=== PATIENT | female | born 1990 | race Two or more races ===

== ENCOUNTER 2017-03-07 15:01 | Emergency (ER) | payer SELFPAY | END 2017-03-07 15:58 | disposition home or self-care (01) | LOC: ER 15:01 | DX: N93.8 Other specified abnormal uterine and vaginal bleeding (principal); J45.909 Unspecified asthma, uncomplicated | CPT/HCPCS: 99282 ==

== ENCOUNTER 2017-04-17 23:44 | Emergency (ER) | payer SELFPAY | END 2017-04-18 00:58 | disposition left against medical advice (07) | LOC: ER 23:44 | DX: R51 Headache (principal); M79.1 Myalgia; Z53.21 Procedure and treatment not carried out due to patient leaving prior to being seen by health care provider ==

== ENCOUNTER 2017-06-20 15:51 | Emergency (ER) | payer SELFPAY ==
[2017-06-20 17:37] LABS: URINE HCG POC HCG NEGATIVE (Negative)
[2017-06-20] MEDS ORDERED: 0.9 % SODIUM CHLORIDE 10 ML DISP.SYRIN. IV (17:45)
[2017-06-20 17:53] LABS: BILIRUBIN,URINE NEGATIVE (NEG); CLARITY,URINE CLOUDY; COLOR,URINE YELLOW; GLUCOSE,URINE NEGATIVE (NEG); NITRITE,URINE NEGATIVE (NEG); PH,URINE 8.5; PROTEIN,URINE 100 mg/dL (NEG-TRACE)
[2017-06-20] MEDS: IOHEXOL 300 MG/ML 100ML VIAL. IV (18:00)
[2017-06-20] MEDS ORDERED: CONTRAST GIVEN MC (18:00)
[2017-06-20 18:07] LABS: BACTERIA,URINE MODERATE /HPF (0-FEW); SQUAMOUS EPITHELIAL CELL,UR FEW /LPF; WBC,URINE >40 /HPF (0-4)
[2017-06-20 18:14] LABS: ADD MAN DIFF? NO
[2017-06-20 18:17] LABS: BASO % 0 % (0-3); EOS % 0 % (0-3); HEMOGLOBIN 11.3 g/dL (12.0-15.5); LYMPH # 1.3 x10^3/uL (1.0-4.8); LYMPH % 11 % (24-48); MEAN CORPUSCULAR HEMOGLOBIN 29 pg (25-35); MEAN CORPUSCULAR HGB CONC 34 g/dL (31-37); MEAN CORPUSCULAR VOLUME 84 fL (79-100); MONO # 0.8 x10^3/uL (0.0-1.1); MONO % 7 % (0-9); NEUT # 9.9 x10^3uL (1.8-7.7); NEUT % 82 % (31-73); PLATELET COUNT 159 x10^3/uL (140-400); RED BLOOD COUNT 3.92 x10^6/uL (3.50-5.40); RED CELL DISTRIBUTION WIDTH 13.5 % (11.5-14.5); WHITE BLOOD COUNT 12.1 x10^3/uL (4.0-11.0)
[2017-06-20 18:25] LABS: ANION GAP 10 (6-14); BLOOD UREA NITROGEN 18 mg/dL (7-20); CALCIUM 8.1 mg/dL (8.5-10.1); CARBON DIOXIDE 24 mmol/L (21-32); CHLORIDE 104 mmol/L (98-107); CREATININE 0.9 mg/dL (0.6-1.0); GFR 76.3; GLUCOSE 100 mg/dL (70-99); POTASSIUM 3.2 mmol/L (3.5-5.1); SODIUM 138 mmol/L (136-145)
[2017-06-20 18:31] LABS: ALBUMIN 3.2 g/dL (3.4-5.0); ALK PHOS 58 U/L (46-116); ALT (SGPT) 10 U/L (14-59); AST (SGOT) 12 U/L (15-37); DIRECT BILIRUBIN 0.1 mg/dL (0.0-0.2); LIPASE 146 U/L (73-393); TOTAL BILIRUBIN 0.6 mg/dL (0.2-1.0); TOTAL PROTEIN 6.9 g/dL (6.4-8.2)
[2017-06-20] MEDS: IV NORMAL SALINE 1000ML BAG 1,000 ML IV (19:04)
[2017-06-20] MEDS: ONDANSETRON PF 4 MG/2 ML VIAL. IV (19:05)
[2017-06-20] MEDS: KETOROLAC 30 MG/ML INJ. IV (19:06)
[2017-06-20] MEDS: MORPHINE SULFATE 4 MG/ML DISP.SYRIN. IV/SQ (19:06)
[2017-06-20] MEDS: CIPROFLOXACIN HCL 250 MG TABLET. PO (19:54)
== END 2017-06-20 19:59 | disposition home or self-care (01) ==
LOC: ER 15:51
DX: N12 Tubulo-interstitial nephritis, not specified as acute or chronic (principal); R00.0 Tachycardia, unspecified; K59.00 Constipation, unspecified; J45.909 Unspecified asthma, uncomplicated
CPT/HCPCS: 36415; 74177; 80048; 80076; 81001; 81025; 83690; 85025; 87086; 96361; 96374; 96375; 99285-25; J1885; J2270; J2405; J7030; Q9967

== ENCOUNTER 2017-08-09 15:14 | Emergency (ER) | payer SELFPAY ==
[2017-08-09 15:30] LABS: URINE HCG POC HCG NEGATIVE (Negative)
[2017-08-09 15:42] LABS: BILIRUBIN,URINE NEGATIVE (NEG); CLARITY,URINE CLEAR; COLOR,URINE YELLOW; GLUCOSE,URINE NEGATIVE (NEG); NITRITE,URINE NEGATIVE (NEG); PH,URINE 7.5; PROTEIN,URINE NEGATIVE (NEG-TRACE)
[2017-08-09 15:47] LABS: BACTERIA,URINE FEW /HPF (0-FEW); SQUAMOUS EPITHELIAL CELL,UR MOD /LPF; WBC,URINE OCC /HPF (0-4)
== END 2017-08-09 16:50 | disposition home or self-care (01) ==
LOC: ER 15:14
DX: R10.9 Unspecified abdominal pain (principal); R11.0 Nausea; J45.909 Unspecified asthma, uncomplicated
CPT/HCPCS: 74176; 81001; 81025; 99285-25

== ENCOUNTER 2018-02-20 15:21 | Emergency (ER) | payer SELFPAY ==
[~2018-02-20] VITALS: Ht 152.4 cm; Wt 56.7 kg
[~2018-02-20 15:21] MED LIST: CIPR500T94 PO; CYCL10TA2 PO; HYDR-2761 PO; NAPR-514 PO; NAPR-683 PO; ONDA4TAB10 PO
--- NOTE | 2018-02-20 15:37 | PHYS DOC ---
Past Medical History Past Medical History: Asthma, UTI Past Surgical History: Alcohol Use: None Drug Use: None Adult General Chief Complaint Chief Complaint: DYSPNEA/RESPIRATOY DISTRESS [facility] HPI Patient is a 27 year old female with history of UTIs, asthma, who presents today complaining of dysuria that began yesterday. Patient is also complaining of a generalized 7 out of 10 lower abdominal pain intermittently since yesterday. Describes the pain as sharp. Denies any nausea vomiting, denies any fever. Provisioning Analyst line was used for [place] Review of Systems Review of Systems Constitutional: Denies fever or chills [] Eyes: Denies change in visual acuity, redness, or eye pain [] HENT: Denies nasal congestion or sore throat [] Respiratory: Denies cough or shortness of breath [] Cardiovascular: No additional information not addressed in HPI [] GI: Reports lower abdominal pain, denies nausea, vomiting, bloody stools or diarrhea [] : Reports dysuria, denies hematuria [] Musculoskeletal: Denies back pain or joint pain [] Integument: Denies rash or skin lesions [] Neurologic: Denies headache, focal weakness or sensory changes [] All other systems were reviewed and found to be within normal limits, except as documented in this note. Allergies Allergies Allergies Coded Allergies Type Severity Reaction Last Updated Verified No Known Drug Allergies 07/13/15 No Physical Exam Physical Exam Constitutional: Well developed, well nourished, no acute distress, non-toxic appearance. [] HENT: Normocephalic, atraumatic, bilateral external ears normal, oropharynx moist, no oral exudates, nose normal. [] Eyes: PERRLA, EOMI, conjunctiva normal, no discharge. [] Neck: Normal range of motion, no tenderness, supple, no stridor. [] Cardiovascular:Heart rate regular rhythm, no murmur [] Lungs & Thorax: Bilateral breath sounds clear to auscultation [] Abdomen: Bowel sounds normal, soft, no tenderness, no masses, no pulsatile masses. [] Skin: Warm, dry, no erythema, no rash. [] Back: No tenderness, no CVA tenderness. [] Extremities: No tenderness, no cyanosis, no clubbing, ROM intact, no edema. [] Neurologic: Alert and oriented X 3, normal motor function, normal sensory function, no focal deficits noted. [] Psychologic: Affect normal, judgement normal, mood normal. [] Current Patient Data Vital Signs Vital Signs Date Time Temp Pulse Resp B/P (MAP) Pulse Ox O2 Delivery O2 Flow Rate FiO2 02/20/18 15:51 98.5 76 16 123/90 (101) 100 Room Air 98.5 Lab Values Laboratory Tests Test 02/20/18 15:30 02/20/18 15:41 Urine Collection Type Unknown Urine Color Yellow Urine Clarity Clear Urine pH 7.5 Urine Specific [place] 1.020 Urine Protein Negative mg/dL (NEG-TRACE) Urine Glucose (UA) Negative mg/dL (NEG) Urine Ketones (Stick) Negative mg/dL (NEG) Urine Blood Trace (NEG) Urine Nitrite Negative (NEG) Urine Bilirubin Negative (NEG) Urine Urobilinogen Dipstick 1.0 mg/dL (0.2 mg/dL) Urine Leukocyte Esterase Moderate (NEG) Urine RBC 1-2 /HPF (0-2) Urine WBC 20-40 /HPF (0-4) Urine Squamous Epithelial Cells Mod /LPF Urine Bacteria Many /HPF (0-FEW) Urine Mucus Slight /LPF POC Urine HCG, Qualitative Hcg negative (Negative) EKG EKG [] Radiology/Procedures Radiology/Procedures [] Course & Med Decision Making Course & Med Decision Making Pertinent Labs and Imaging studies reviewed. (See chart for details) This is a 27-year-old female patient presenting to the ED today with complaints of dysuria and lower abdominal pain that began yesterday. History of UTIs. Urine positive for UTI, discharged on MicroBid. Also discharged on Pyridium and ibuprofen. Instructed to push fluids and follow-up with her own doctor in 1-2 weeks. Staff Physician Addendum: I was working in the ER during the course of this patient's visit. I was available for consultation as needed, but I was not directly involved in the care of this patient. Dragon Disclaimer Dragon Disclaimer This electronic medical record was generated, in whole or in part, using a voice recognition dictation system. Departure Departure Impression: Primary Impression: Urinary tract infection Disposition: HOME, SELF-CARE Condition: STABLE Referrals: NO PCP (PCP) Follow-up with your doctor in 1-2 weeks Patient Instructions: Urinary Tract Infection Additional Instructions: You were evaluated in the emergency room on noted to have urinary tract infection. Please complete your antibiotics. Push fluids. Take the rest of the prescribed medications as ordered. Scripts Ibuprofen (IBUPROFEN) 600 Mg Tablet 600 MG PO PRN Q6HRS PRN for INFLAMMATION, #20 TAB Prov: NICOLE MURPHY APRN 02/20/18 Phenazopyridine Hcl (PYRIDIUM) 100 Mg Tablet 100 MG PO TID, #9 TAB Prov: NICOLE MURPHY APRN 02/20/18 Nitrofurantoin Macrocrystal (MACRODANTIN) 100 Mg Capsule 1 CAP PO BID, #14 CAP Prov: NICOLE MURPHY APRN 02/20/18 Problem Qualifiers Primary Impression: Urinary tract infection Urinary tract infection type: site unspecified Hematuria presence: without hematuria Qualified Codes: N39.0 - Urinary tract infection, site not specified NICOLE MURPHY APRN Feb 20, 2018 15:37 JOHNSON BAUMAN MD Feb 20, 2018 16:50
[2018-02-20 15:47] LABS: BILIRUBIN,URINE NEGATIVE (NEG); CLARITY,URINE CLEAR; COLOR,URINE YELLOW; NITRITE,URINE NEGATIVE (NEG); PH,URINE 7.5; PROTEIN,URINE NEGATIVE (NEG-TRACE)
[2018-02-20 15:51] VITALS: BP 123/90
[2018-02-20 16:05] LABS: BACTERIA,URINE MANY /HPF (0-FEW); SQUAMOUS EPITHELIAL CELL,UR MOD /LPF; WBC,URINE 20-40 /HPF (0-4)
[2018-02-20] MEDS ORDERED: PHEN100T82 PO (16:14)
[2018-02-20] MEDS ORDERED: NITR100C63 PO (16:14)
[2018-02-20] MEDS ORDERED: IBUP-1007 PO (16:14)
== END 2018-02-20 16:21 | disposition home or self-care (01) ==
LOC: ER 15:21
DX: N39.0 Urinary tract infection, site not specified (principal); J45.909 Unspecified asthma, uncomplicated
CPT/HCPCS: 81001; 81025; 87086; 87186; 99283

== ENCOUNTER 2018-11-05 10:19 | Emergency (ER) | payer SELFPAY ==
[~2018-11-05] VITALS: Ht 167.6 cm; Wt 68.9 kg
[~2018-11-05 10:19] MED LIST changes: +IBUP-1007 PO; +NITR100C63 PO; +PHEN100T82 PO
[2018-11-05 11:37] LABS: BILIRUBIN,URINE NEGATIVE (NEG); CLARITY,URINE CLEAR; COLOR,URINE YELLOW; NITRITE,URINE NEGATIVE (NEG); PROTEIN,URINE NEGATIVE (NEG-TRACE); UROBILINOGEN,URINE 0.2 mg/dL (0.2 mg/dL)
[2018-11-05 11:42] LABS: BASO % 1 % (0-3); EOS % 0 % (0-3); HEMATOCRIT 39.4 % (36.0-47.0); HEMOGLOBIN 13.3 g/dL (12.0-15.5); LYMPH # 1.8 x10^3/uL (1.0-4.8); LYMPH % 23 % (24-48); MEAN CORPUSCULAR HEMOGLOBIN 29 pg (25-35); MEAN CORPUSCULAR HGB CONC 34 g/dL (31-37); MEAN CORPUSCULAR VOLUME 86 fL (79-100); MONO # 0.4 x10^3/uL (0.0-1.1); MONO % 5 % (0-9); NEUT # 5.5 x10^3/uL (1.8-7.7); NEUT % 71 % (31-73); PLATELET COUNT 171 x10^3/uL (140-400); RED CELL DISTRIBUTION WIDTH 13.2 % (11.5-14.5); WHITE BLOOD COUNT 7.7 x10^3/uL (4.0-11.0)
[2018-11-05 11:44] LABS: BACTERIA,URINE FEW /HPF (0-FEW); HYALINE CASTS, URINE OCCASIONAL /HPF; RBC,URINE 0 /HPF (0-2); SQUAMOUS EPITHELIAL CELL,UR OCC /LPF
[2018-11-05 11:45] LABS: CALCIUM 8.7 mg/dL (8.5-10.1); CREATININE 0.9 mg/dL (0.6-1.0); GFR 75.7; POTASSIUM 3.9 mmol/L (3.5-5.1)
[2018-11-05 11:51] LABS: ALBUMIN 3.9 g/dL (3.4-5.0); TOTAL BILIRUBIN 0.3 mg/dL (0.2-1.0); TOTAL PROTEIN 7.8 g/dL (6.4-8.2)
--- NOTE | 2018-11-05 11:55 | RAD ---
PORTABLE CHEST 1V History: History of trauma. Left rib pain. Comparison: None. Findings: No consolidation or pleural effusion. Normal heart size. No pneumothorax. Angulation of the left lateral 8 rib. Impression: 1. No acute cardiopulmonary process. 2. Age-indeterminate left lateral eighth rib fracture. Correlate for point tenderness. Electronically signed by: Vishal Avila DO (11/05/2018 11:53 AM) [id number]
[2018-11-05] MEDS ORDERED: IOHEXOL 300 MG/ML 100ML VIAL. IJ ONE (12:15)
[2018-11-05] MEDS ORDERED: ACETAMINOPHEN 500 MG TABLET PO ONE (12:15)
--- NOTE | 2018-11-05 12:51 | RAD ---
CT of the abdomen and pelvis with contrast 11/05/2018 INDICATION: Upper abdominal pain. Recent trauma COMPARISON STUDY: None available TECHNIQUE: Multidetector CT imaging of the abdomen and pelvis is obtained after the administration of intravenous contrast. FINDINGS: Visualized lung bases demonstrate no acute abnormality. Liver, gallbladder, adrenal glands, spleen, pancreas, and kidneys demonstrate no acute abnormality. There is no evidence of bowel obstruction. No evidence of acute inflammatory change involving the visualized bowel is identified. The appendix is well-visualized and normal in appearance. The bladder is unremarkable in appearance. Limited evaluation the uterus and adnexa demonstrates no gross abnormality. There are healing fractures of the left eighth and ninth ribs with some associated callus formation.. The appearance suggests a subacute or chronic etiology. Correlate with focal tenderness. Impression: 1.Subacute to chronic fractures of the lateral left eighth and ninth ribs. Correlate with point tenderness 2. No other acute intra-abdominal abnormality is seen CT DOSING PQRS STATEMENT: One or more of the following individualized dose reduction techniques were utilized for this examination: 1. Automated exposure control 2. Adjustment of the mA and/or kV according to patient size 3. Use of iterative reconstruction technique Electronically signed by: Maurizio Jones MD (11/05/2018 12:48 PM) [id number]
[2018-11-05] MEDS ORDERED: HYDR-3164 PO (13:10)
[2018-11-05 13:55] VITALS: BP 109/63
--- NOTE | 2018-11-05 14:48 | PHYS DOC ---
Past Medical History Past Medical History: No Pertinent History, Asthma, UTI Past Surgical History: Alcohol Use: Occasionally Drug Use: None Adult General Chief Complaint Chief Complaint: ABDOMINAL PAIN HPI HPI Patient is a 28 year old Female history is obtained with a interpreter. Patient is complaining of left rib pain and lower rib area she fell on a ladder sort of on top of a ladder 2 weeks ago the pain is slowly going away she also has left upper quadrant and lower abdominal pain. She also noticed some bumps in her right lateral neck and her right axilla that she was worried about those have been going on the ones in the axilla for months the ones on the right neck for a couple of days associated with rhinorrhea and a scratchy throat no fever that she knows of denies domestic violence asked this with an video production intern in private pain is sharp moderate slowly actually slowly decreasing with time Review of Systems Review of Systems Constitutional: Denies fever or chills [] Eyes: Denies change in visual acuity, redness, or eye pain [] HENT: Denies nasal congestion or sore throat [] Respiratory: Denies cough or shortness of breath [] Cardiovascular: No additional information not addressed in HPI [] GI: Denies abdominal pain, nausea, vomiting, bloody stools or diarrhea [] : Denies dysuria or hematuria [] Musculoskeletal: Denies back pain or joint pain [] Integument: Denies rash or skin lesions [] Neurologic: Denies headache, focal weakness or sensory changes [] Endocrine: Denies polyuria or polydipsia [] All other systems were reviewed and found to be within normal limits, except as documented in this note. Current Medications Current Medications Current Medications Medications (Trade) Dose Ordered Sig/Patito Start Time Stop Time Status Last Admin Dose Admin Acetaminophen (Tylenol) 1,000 mg 1X ONCE 11/05/18 12:15 11/05/18 12:16 DC 11/05/18 12:04 1,000 MG Iohexol (Omnipaque 300 Mg/ml) 75 ml 1X ONCE 11/05/18 12:15 11/05/18 12:16 DC 11/05/18 11:55 75 ML Allergies Allergies Allergies Coded Allergies Type Severity Reaction Last Updated Verified No Known Drug Allergies 07/13/15 No Physical Exam Physical Exam Constitutional: Well developed, well nourished, no acute distress, non-toxic appearance. [] HENT: Normocephalic, atraumatic, bilateral external ears normal, oropharynx moist, no oral exudates, nose normal. [] Eyes: PERRLA, EOMI, conjunctiva normal, no discharge. [] Neck: Normal range of motion, no tenderness, supple, no stridor. [] Cardiovascular:Heart rate regular rhythm, no murmur [] Lungs & Thorax: Bilateral breath sounds clear to auscultation [] chest wall ttp lower left chest no crepitus Abdomen: Bowel sounds normal, soft, mild luq tenderness, no masses, no pulsatile masses. [] Skin: Patient does have evidence of mass lymphadenopathy in the right posterior cervical chain 0.5 cm nontender mobile. Oral pharynx mild erythema no exudate no swelling tolerating secretions without difficulty. There is also a small nodule in the right axilla could be HIDRADENTIIS SUPPURITIVA V. LESS LIKELY LYMPHADENOPATHY WELL. I recommended follow-up with primary care doctor should the NODULESnot improve with warm compresses and observation Back: No tenderness, no CVA tenderness. [] Extremities: No tenderness, no cyanosis, no clubbing, ROM intact, no edema. [] Neurologic: Alert and oriented X 3, normal motor function, normal sensory function, no focal deficits noted. [] Psychologic: Affect normal, judgement normal, mood normal. [] Current Patient Data Vital Signs Vital Signs Date Time Temp Pulse Resp B/P (MAP) Pulse Ox O2 Delivery O2 Flow Rate FiO2 11/05/18 13:55 68 16 109/63 (78) 100 Room Air 11/05/18 11:20 98.0 98.0 Lab Values Laboratory Tests Test 11/05/18 11:02 11/05/18 11:05 11/05/18 11:15 Urine Collection Type Unknown Urine Color Yellow Urine Clarity Clear Urine pH 6.0 Urine Specific [place] 1.015 Urine Protein Negative mg/dL (NEG-TRACE) Urine Glucose (UA) Negative mg/dL (NEG) Urine Ketones (Stick) Negative mg/dL (NEG) Urine Blood Trace (NEG) Urine Nitrite Negative (NEG) Urine Bilirubin Negative (NEG) Urine Urobilinogen Dipstick 0.2 mg/dL (0.2 mg/dL) Urine Leukocyte Esterase Negative (NEG) Urine RBC 0 /HPF (0-2) Urine WBC 1-4 /HPF (0-4) Urine Squamous Epithelial Cells Occ /LPF Urine Bacteria Few /HPF (0-FEW) Urine Hyaline Casts Occasional /HPF Urine Mucus Slight /LPF POC Urine HCG, Qualitative Hcg negative (Negative) White Blood Count 7.7 x10^3/uL (4.0-11.0) Red Blood Count 4.60 x10^6/uL (3.50-5.40) Hemoglobin 13.3 g/dL (12.0-15.5) Hematocrit 39.4 % (36.0-47.0) Mean Corpuscular Volume 86 fL (79-100) Mean Corpuscular Hemoglobin 29 pg (25-35) Mean Corpuscular Hemoglobin Concent 34 g/dL (31-37) Red Cell Distribution Width 13.2 % (11.5-14.5) Platelet Count 171 x10^3/uL (140-400) Neutrophils (%) (Auto) 71 % (31-73) Lymphocytes (%) (Auto) 23 % (24-48) L Monocytes (%) (Auto) 5 % (0-9) Eosinophils (%) (Auto) 0 % (0-3) Basophils (%) (Auto) 1 % (0-3) Neutrophils # (Auto) 5.5 x10^3/uL (1.8-7.7) Lymphocytes # (Auto) 1.8 x10^3/uL (1.0-4.8) Monocytes # (Auto) 0.4 x10^3/uL (0.0-1.1) Eosinophils # (Auto) 0.0 x10^3/uL (0.0-0.7) Basophils # (Auto) 0.0 x10^3/uL (0.0-0.2) Sodium Level 142 mmol/L (136-145) Potassium Level 3.9 mmol/L (3.5-5.1) Chloride Level 107 mmol/L (98-107) Carbon Dioxide Level 26 mmol/L (21-32) Anion Gap 9 (6-14) Blood Urea Nitrogen 10 mg/dL (7-20) Creatinine 0.9 mg/dL (0.6-1.0) Estimated GFR (Cockcroft-Gault) 75.7 BUN/Creatinine Ratio 11 (6-20) Glucose Level 84 mg/dL (70-99) Calcium Level 8.7 mg/dL (8.5-10.1) Total Bilirubin 0.3 mg/dL (0.2-1.0) Aspartate Amino Transferase (AST) 16 U/L (15-37) Alanine Aminotransferase (ALT) 14 U/L (14-59) Alkaline Phosphatase 77 U/L (46-116) Total Protein 7.8 g/dL (6.4-8.2) Albumin 3.9 g/dL (3.4-5.0) Albumin/Globulin Ratio 1.0 (1.0-1.7) Lipase 173 U/L (73-393) Laboratory Tests 11/05/18 11:15 Laboratory Tests 11/05/18 11:15 EKG EKG [] Radiology/Procedures Radiology/Procedures Impression: 1. No acute cardiopulmonary process. 2. Age-indeterminate left lateral eighth rib fracture. Correlate for point tenderness. Electronically signed by: Vishal Dow DO (11/05/2018 11:53 AM) [id number] DICTATED and SIGNED BY: VISHAL DOW DO DATE: 11/05/18 1153 [] Impressions: after the administration of intravenous contrast. FINDINGS: Visualized lung bases demonstrate no acute abnormality. Liver, gallbladder, adrenal glands, spleen, pancreas, and kidneys demonstrate no acute abnormality. There is no evidence of bowel obstruction. No evidence of acute inflammatory change involving the visualized bowel is identified. The appendix is well-visualized and normal in appearance. The bladder is unremarkable in appearance. Limited evaluation the uterus and adnexa demonstrates no gross abnormality. There are healing fractures of the left eighth and ninth ribs with some associated callus formation.. The appearance suggests a subacute or chronic etiology. Correlate with focal tenderness. Impression: 1.Subacute to chronic fractures of the lateral left eighth and ninth ribs. Correlate with point tenderness 2. No other acute intra-abdominal abnormality is seen CT DOSING PQRS STATEMENT: One or more of the following individualized dose reduction techniques were utilized for this examination: 1. Automated exposure control 2. Adjustment of the mA and/or kV according to patient size 3. Use of iterative reconstruction technique Electronically signed by: Maurizio Jones MD (11/05/2018 12:48 PM) [facility] Course & Med Decision Making Course & Med Decision Making Pertinent Labs and Imaging studies reviewed. (See chart for details) []28 yo f multiple complaints trauma likely subacute fracture left rib area. fits with hx of trauma two weeks ago labs look good probable lymphadenopathy on exam recommended observation f/u with pmd should symptoms not improve as expected trial of norco prn, counseled not to drive Dragon Disclaimer Dragon Disclaimer This electronic medical record was generated, in whole or in part, using a voice recognition dictation system. Departure Departure Impression: Primary Impression: Rib fracture Disposition: HOME, SELF-CARE Condition: STABLE Patient Instructions: Rib Fracture, Dzcn-ko-Vovx Scripts Hydrocodone/Apap 5-325 (NORCO 5-325 TABLET) 1 Each Tablet 1-2 EACH PO PRN Q6HRS PRN for PAIN, #15 as needed for pain Prov: JOHNSON BAUMAN MD 11/05/18 JOHNSON BAUMAN MD Nov 05, 2018 14:48
== END 2018-11-05 13:55 | disposition home or self-care (01) ==
LOC: ER 10:19
DX: S22.32XA Fracture of one rib, left side, initial encounter for closed fracture (principal); R10.32 Left lower quadrant pain; R10.12 Left upper quadrant pain; J45.909 Unspecified asthma, uncomplicated; Z98.890 Other specified postprocedural states; W11.XXXA Fall on and from ladder, initial encounter; Y93.89 Activity, other specified; Y92.89 Other specified places as the place of occurrence of the external cause; Y99.8 Other external cause status
CPT/HCPCS: 36415; 71045; 74177; 80053; 81001; 81025; 83690; 85025; 99285; Q9967

== ENCOUNTER 2018-11-30 11:13 | Emergency (ER) | payer SELFPAY ==
[~2018-11-30] VITALS: Ht 154.9 cm; Wt 68.0 kg
[~2018-11-30 11:13] MED LIST changes: +HYDR-3164 PO
[2018-11-30] MEDS ORDERED: IV NORMAL SALINE 1000ML BAG 1,000 ML IV SCH (11:33)
--- NOTE | 2018-11-30 11:54 | PHYS DOC ---
Past Medical History Past Medical History: No Pertinent History, Asthma, UTI Past Surgical History: Alcohol Use: Occasionally Drug Use: None Adult General Chief Complaint Chief Complaint: ABDOMINAL PAIN HPI HPI Patient is a 28-year-old female who presents with complaint of lower abdominal pain that started a couple of days ago. She rates pain currently at a 3 out of 10. She denies any nausea but does admit to some vomiting. She denies any diarrhea. Patient states that it's been 3 months since her last menstrual cycle but does admit to a control shot about 2 months ago. She states that currently she is not on any control but is sexually active. She denies any fever or urinary discomfort.[] Review of Systems Review of Systems Constitutional: Denies fever or chills [] Respiratory: Denies cough or shortness of breath [] Cardiovascular: No additional information not addressed in HPI [] GI: Complains of lower abdominal pain with vomiting. Denies diarrhea [] : Denies dysuria or hematuria [] Musculoskeletal: Denies back pain or joint pain [] All other systems were reviewed and found to be within normal limits, except as documented in this note. Current Medications Current Medications Current Medications Medications (Trade) Dose Ordered Sig/Patito Start Time Stop Time Status Last Admin Dose Admin Info (CONTRAST GIVEN -- Rx MONITORING) 1 each PRN DAILY PRN 11/30/18 14:30 12/02/18 14:29 Iohexol (Omnipaque 300 Mg/ml) 75 ml 1X ONCE 11/30/18 14:30 11/30/18 14:31 DC Sodium Chloride 1,000 ml @ 1,000 mls/hr Q1H 11/30/18 11:33 11/30/18 12:32 DC 11/30/18 11:56 1,000 MLS/HR Allergies Allergies Allergies Coded Allergies Type Severity Reaction Last Updated Verified No Known Drug Allergies 07/13/15 No Physical Exam Physical Exam Constitutional: Well developed, well nourished, no acute distress, non-toxic woody earance. [] HENT: Normocephalic, atraumatic, bilateral external ears normal, oropharynx moist, no oral exudates, nose normal. [] Eyes: PERRLA, EOMI, conjunctiva normal, no discharge. [] Neck: Normal range of motion, no tenderness, supple, no stridor. [] Cardiovascular:Heart rate regular rhythm, no murmur [] Lungs & Thorax: Bilateral breath sounds clear to auscultation [] Abdomen: Bowel sounds normal, soft, with mild reported tenderness in the lower abdomen. [] Skin: Warm, dry, no erythema, no rash. [] Extremities: No tenderness, no cyanosis, no clubbing, ROM intact, no edema. [] Neurologic: Alert and oriented X 3, no focal deficits noted. [] Current Patient Data Vital Signs Vital Signs Date Time Temp Pulse Resp B/P (MAP) Pulse Ox O2 Delivery O2 Flow Rate FiO2 11/30/18 14:30 18 128/72 (90) Room Air 99.0 11/30/18 14:00 18 99 11/30/18 11:25 97.8 97.8 Lab Values Laboratory Tests Test 11/30/18 11:45 11/30/18 14:00 11/30/18 14:06 White Blood Count 7.8 x10^3/uL (4.0-11.0) Red Blood Count 4.46 x10^6/uL (3.50-5.40) Hemoglobin 13.1 g/dL (12.0-15.5) Hematocrit 37.8 % (36.0-47.0) Mean Corpuscular Volume 85 fL (79-100) Mean Corpuscular Hemoglobin 29 pg (25-35) Mean Corpuscular Hemoglobin Concent 35 g/dL (31-37) Red Cell Distribution Width 13.7 % (11.5-14.5) Platelet Count 195 x10^3/uL (140-400) Neutrophils (%) (Auto) 73 % (31-73) Lymphocytes (%) (Auto) 20 % (24-48) L Monocytes (%) (Auto) 6 % (0-9) Eosinophils (%) (Auto) 1 % (0-3) Basophils (%) (Auto) 1 % (0-3) Neutrophils # (Auto) 5.7 x10^3/uL (1.8-7.7) Lymphocytes # (Auto) 1.6 x10^3/uL (1.0-4.8) Monocytes # (Auto) 0.4 x10^3/uL (0.0-1.1) Eosinophils # (Auto) 0.1 x10^3/uL (0.0-0.7) Basophils # (Auto) 0.0 x10^3/uL (0.0-0.2) Maternal Serum HCG Beta Subunit 1 mIU/mL (0-5) Sodium Level 139 mmol/L (136-145) Potassium Level 4.0 mmol/L (3.5-5.1) Chloride Level 106 mmol/L (98-107) Carbon Dioxide Level 25 mmol/L (21-32) Anion Gap 8 (6-14) Blood Urea Nitrogen 11 mg/dL (7-20) Creatinine 0.8 mg/dL (0.6-1.0) Estimated GFR (Cockcroft-Gault) 86.7 BUN/Creatinine Ratio 14 (6-20) Glucose Level 99 mg/dL (70-99) Calcium Level 9.0 mg/dL (8.5-10.1) Total Bilirubin 0.7 mg/dL (0.2-1.0) Aspartate Amino Transferase (AST) 25 U/L (15-37) Alanine Aminotransferase (ALT) 16 U/L (14-59) Alkaline Phosphatase 70 U/L (46-116) Total Protein 7.9 g/dL (6.4-8.2) Albumin 3.7 g/dL (3.4-5.0) Albumin/Globulin Ratio 0.9 (1.0-1.7) L Lipase 211 U/L (73-393) Urine Collection Type Unknown Urine Color Yellow Urine Clarity Clear Urine pH 6.0 Urine Specific [place] 1.010 Urine Protein Negative mg/dL (NEG-TRACE) Urine Glucose (UA) Negative mg/dL (NEG) Urine Ketones (Stick) Negative mg/dL (NEG) Urine Blood Negative (NEG) Urine Nitrite Negative (NEG) Urine Bilirubin Negative (NEG) Urine Urobilinogen Dipstick 0.2 mg/dL (0.2 mg/dL) Urine Leukocyte Esterase Negative (NEG) Urine RBC 1-2 /HPF (0-2) Urine WBC Occ /HPF (0-4) Urine Squamous Epithelial Cells Mod /LPF Urine Bacteria Few /HPF (0-FEW) Urine Test Negative (NEG) POC Urine HCG, Qualitative Hcg negative (Negative) Laboratory Tests 11/30/18 11:45 Laboratory Tests 11/30/18 11:45 EKG EKG [] Radiology/Procedures Radiology/Procedures [] Impressions: PROCEDURE: CT ABD PELV W/ IV CONTRST ONLY CT study of the abdomen and pelvis with contrast Clinical indications: Abdominal pain. TECHNIQUE: After IV infusion of 75 cc Omnipaque 300, helical CT scanning of the abdomen and pelvis was performed. No GI contrast was administered. This may decrease the sensitivity to detect GI tract pathology. PQRS compliance Statement One or more of the following individualized dose reduction techniques were utilized for this study: 1. Automated exposure control 2. Adjustment of the mA and/or kV according to patient size 3. Use of iterative reconstruction technique FINDINGS: The liver and spleen and pancreas and gallbladder are normal. No extrahepatic biliary ductal dilatation is seen. No adrenal mass is evident. Both kidneys are normal without hydronephrosis or hydroureter. Urinary bladder wall is smooth. No uterine mass is evident. No dominant ovarian cyst or mass is evident. No focal aneurysmal dilatation of the abdominal aorta is seen. No enlarged abdominal or pelvic lymphadenopathy is evident. Appendix is normal. Terminal ileum is unremarkable. No obstructive bowel pattern is evident. No free air or free fluid or mesenteric edema is seen. No lung base consolidation is evident. No lytic process is seen. IMPRESSION: No acute abnormality of the abdomen or pelvis. Electronically signed by: Laci Cox MD (11/30/2018 3:44 PM) [facility] Course & Med Decision Making Course & Med Decision Making Pertinent Labs and Imaging studies reviewed. (See chart for details) [] Dragon Disclaimer Dragon Disclaimer This electronic medical record was generated, in whole or in part, using a voice recognition dictation system. Departure Departure Impression: Primary Impression: Lower abdominal pain Disposition: HOME, SELF-CARE Condition: STABLE Referrals: NO PCP (PCP) Patient Instructions: Abdominal Pain Scripts Ondansetron Hcl (ZOFRAN) 4 Mg Tablet 4 MG PO PRN TID PRN for NAUSEA, #15 nausea/vomiting Prov: LUZ VELAZQUEZ Jr. DO 11/30/18 Tramadol Hcl (TRAMADOL HCL) 50 Mg Tablet 50 MG PO Q6HRS PRN for PAIN, #10 TAB Prov: LUZ VELAZQUEZ Jr. DO 11/30/18 LUZ VELAZQUEZ Jr. DO Nov 30, 2018 11:54
[2018-11-30 12:06] LABS: CREATININE 0.8 mg/dL (0.6-1.0); GFR 86.7
[2018-11-30 12:07] LABS: BASO % 1 % (0-3); EOS # 0.1 x10^3/uL (0.0-0.7); EOS % 1 % (0-3); HEMATOCRIT 37.8 % (36.0-47.0); HEMOGLOBIN 13.1 g/dL (12.0-15.5); LYMPH # 1.6 x10^3/uL (1.0-4.8); LYMPH % 20 % (24-48); MEAN CORPUSCULAR HEMOGLOBIN 29 pg (25-35); MEAN CORPUSCULAR HGB CONC 35 g/dL (31-37); MEAN CORPUSCULAR VOLUME 85 fL (79-100); MONO # 0.4 x10^3/uL (0.0-1.1); MONO % 6 % (0-9); NEUT # 5.7 x10^3/uL (1.8-7.7); NEUT % 73 % (31-73); PLATELET COUNT 195 x10^3/uL (140-400); RED BLOOD COUNT 4.46 x10^6/uL (3.50-5.40); RED CELL DISTRIBUTION WIDTH 13.7 % (11.5-14.5); WHITE BLOOD COUNT 7.8 x10^3/uL (4.0-11.0)
[2018-11-30 12:15] LABS: ALBUMIN 3.7 g/dL (3.4-5.0); ALBUMIN/GLOBULIN RATIO 0.9 (1.0-1.7); TOTAL BILIRUBIN 0.7 mg/dL (0.2-1.0); TOTAL PROTEIN 7.9 g/dL (6.4-8.2)
[2018-11-30 14:13] LABS: BILIRUBIN,URINE NEGATIVE (NEG); CLARITY,URINE CLEAR; COLOR,URINE YELLOW; NITRITE,URINE NEGATIVE (NEG); PROTEIN,URINE NEGATIVE (NEG-TRACE); UROBILINOGEN,URINE 0.2 mg/dL (0.2 mg/dL)
[2018-11-30 14:30] VITALS: BP 128/72
[2018-11-30] MEDS ORDERED: IOHEXOL 300 MG/ML 100ML VIAL. IV ONE (14:30)
[2018-11-30] MEDS ORDERED: CONTRAST GIVEN. MC PRN (14:30)
[2018-11-30 14:39] LABS: BACTERIA,URINE FEW /HPF (0-FEW); SQUAMOUS EPITHELIAL CELL,UR MOD /LPF; WBC,URINE OCC /HPF (0-4)
[2018-11-30 14:43] LABS: U PREG PATIENT NEGATIVE (NEG)
--- NOTE | 2018-11-30 15:47 | RAD ---
CT study of the abdomen and pelvis with contrast Clinical indications: Abdominal pain. TECHNIQUE: After IV infusion of 75 cc Omnipaque 300, helical CT scanning of the abdomen and pelvis was performed. No GI contrast was administered. This may decrease the sensitivity to detect GI tract pathology. PQRS compliance Statement One or more of the following individualized dose reduction techniques were utilized for this study: 1. Automated exposure control 2. Adjustment of the mA and/or kV according to patient size 3. Use of iterative reconstruction technique FINDINGS: The liver and spleen and pancreas and gallbladder are normal. No extrahepatic biliary ductal dilatation is seen. No adrenal mass is evident. Both kidneys are normal without hydronephrosis or hydroureter. Urinary bladder wall is smooth. No uterine mass is evident. No dominant ovarian cyst or mass is evident. No focal aneurysmal dilatation of the abdominal aorta is seen. No enlarged abdominal or pelvic lymphadenopathy is evident. Appendix is normal. Terminal ileum is unremarkable. No obstructive bowel pattern is evident. No free air or free fluid or mesenteric edema is seen. No lung base consolidation is evident. No lytic process is seen. IMPRESSION: No acute abnormality of the abdomen or pelvis. Electronically signed by: Laci Cox MD (11/30/2018 3:44 PM) [facility]
[2018-11-30] MEDS ORDERED: TRAM50TA PO (16:00)
[2018-11-30] MEDS ORDERED: ONDA4TAB7 PO (16:00)
== END 2018-11-30 16:14 | disposition home or self-care (01) ==
LOC: ER 11:13
DX: R10.30 Lower abdominal pain, unspecified (principal); R11.10 Vomiting, unspecified; J45.909 Unspecified asthma, uncomplicated; Z98.890 Other specified postprocedural states
CPT/HCPCS: 36415; 74177; 80053; 81001; 81025; 83690; 84702; 85025; 96360; 96361; 99285; J7030

== ENCOUNTER 2019-09-11 10:12 | Emergency (ER) | payer SELFPAY ==
[~2019-09-11] VITALS: Ht 152.4 cm; Wt 67.1 kg
[~2019-09-11 10:12] MED LIST changes: +ONDA4TAB7 PO; +TRAM50TA PO
[2019-09-11 10:46] LABS: BILIRUBIN,URINE NEGATIVE (NEG); CLARITY,URINE CLEAR; COLOR,URINE YELLOW; NITRITE,URINE NEGATIVE (NEG); PH,URINE 6.5 (<5.0-8.0); PROTEIN,URINE NEGATIVE (NEG-TRACE)
[2019-09-11 10:56] LABS: SQUAMOUS EPITHELIAL CELL,UR MANY /LPF
[2019-09-11 10:58] LABS: BACTERIA,URINE FEW /HPF (0-FEW); RBC,URINE OCC /HPF (0-2)
--- NOTE | 2019-09-11 14:19 | RAD ---
EXAM: OBSTETRIC ULTRASOUND, <14 WEEKS. HISTORY: Pelvic pain in . COMPARISON: None. FINDINGS: Sonographic evaluation of the pelvis was performed transabdominally and transvaginally. The uterus is anteverted and measures 9.2 x 5.1 x 4.8 cm. No masses are identified. No endometrial gestational sac is identified. The endometrial stripe measures 12 mm. The right ovary measures 3.7 x 3.1 x 1.8 cm. The left ovary measures 3.2 x 3.1 x 2.7 cm. There is normal Doppler flow bilaterally. There is no adnexal mass. There is a small amount of free fluid. IMPRESSION: 1. No intrauterine gestation or adnexal mass is identified. Correlate with quantitative beta hCG to determine if this is appropriate. Ongoing follow-up of quantitative beta hCG is recommended. Electronically signed by: Maya Murrieta MD (09/11/2019 2:16 PM) [id number]
--- NOTE | 2019-09-11 14:53 | PHYS DOC ---
Past Medical History Past Medical History: No Pertinent History, Asthma, UTI Past Surgical History: Smoking Status: Never Smoker Alcohol Use: Occasionally Drug Use: None General Adult EDM: Chief Complaint: ABDOMINAL PAIN HPI: HPI: Patient is a 29 year old female female who presents to the emergency department with complaints of suprapubic abdominal pain, nausea, constipation, malodorous urine, and dysuria that started 2 weeks ago. She reports that she recently had a positive home test. She denies any irregular vaginal discharge, vaginal bleeding, or vaginal odor. She states that her last menstrual cycle was on 07/11/2019, patient is 3, para 1, with 1 previous miscarriage at 13 weeks. She states she does not have a RN INFUSION here. She denies any fever, cough, shortness of breath, chest pain, dizziness, or headache. She currently rates her pain a 4-5 out of 10 on the pain scale, she denies any alleviating or exacerbating factors, she denies any radiation of the pain. The [employer] motion study engineer line was used to converse with the patient is she is [place]-speaking only. Review of Systems: Review of Systems: Complete ROS is negative unless otherwise stated in the HPI. Heart Score: Risk Factors: Risk Factors: DM, Current or recent (<one month) smoker, HTN, HLP, family history of CAD, obesity. Risk Scores: Score 0 - 3: 2.5% MACE over next 6 weeks - Discharge Home Score 4 - 6: 20.3% MACE over next 6 weeks - Admit for Clinical Observation Score 7 - 10: 72.7% MACE over next 6 weeks - Early Invasive Strategies Allergies: Allergies: Allergies Coded Allergies Type Severity Reaction Last Updated Verified No Known Drug Allergies 07/13/15 No Physical Exam: PE: Constitutional: Well developed, well nourished, no acute distress, non-toxic appearance. [] HENT: Normocephalic, atraumatic, bilateral external ears normal, nose normal. [] Eyes: PERRLA, EOMI, conjunctiva normal, no discharge. [] Neck: Normal range of motion, no stridor. [] Cardiovascular:Heart rate regular rhythm Lungs & Thorax: Respirations even and unlabored, no retractions, no respiratory distress Abdomen: soft, suprapubic tenderness to palpation, no rebound tenderness, no guarding, no palpable masses Back: No CVA tenderness Skin: Warm, dry, no erythema, no rash. [] Extremities: No cyanosis, ROM intact, no edema. [] Neurologic: Alert and oriented X 3, no focal deficits noted. [] Psychologic: Affect normal, judgement normal, mood normal. [] Current Patient Data: Labs: Laboratory Tests Test 09/11/19 10:30 09/11/19 10:35 09/11/19 12:26 Urine Collection Type Unknown Urine Color Yellow Urine Clarity Clear Urine pH 6.5 (<5.0-8.0) Urine Specific [place] 1.020 (1.000-1.030) Urine Protein Negative mg/dL (NEG-TRACE) Urine Glucose (UA) Negative mg/dL (NEG) Urine Ketones (Stick) Negative mg/dL (NEG) Urine Blood Negative (NEG) Urine Nitrite Negative (NEG) Urine Bilirubin Negative (NEG) Urine Urobilinogen Dipstick 1.0 mg/dL (0.2 mg/dL) Urine Leukocyte Esterase Negative (NEG) Urine RBC Occ /HPF (0-2) Urine WBC 1-4 /HPF (0-4) Urine Squamous Epithelial Cells Many /LPF Urine Bacteria Few /HPF (0-FEW) Urine Mucus Marked /LPF POC Urine HCG, Qualitative Hcg positive (Negative) Maternal Serum HCG Beta Subunit 469 mIU/mL (0-5) H Vital Signs: Vital Signs Date Time Temp Pulse Resp B/P (MAP) Pulse Ox O2 Delivery O2 Flow Rate FiO2 09/11/19 10:26 98.9 74 17 115/64 (81) 100 Room Air 98.9 EKG: EKG: [] Radiology/Procedures: Radiology/Procedures: PROCEDURE: PREG 1ST TRIMESTER EXAM: OBSTETRIC ULTRASOUND, <14 WEEKS. HISTORY: Pelvic pain in . COMPARISON: None. FINDINGS: Sonographic evaluation of the pelvis was performed transabdominally and transvaginally. The uterus is anteverted and measures 9.2 x 5.1 x 4.8 cm. No masses are identified. No endometrial gestational sac is identified. The endometrial stripe measures 12 mm. The right ovary measures 3.7 x 3.1 x 1.8 cm. The left ovary measures 3.2 x 3.1 x 2.7 cm. There is normal Doppler flow bilaterally. There is no adnexal mass. There is a small amount of free fluid. IMPRESSION: 1. No intrauterine gestation or adnexal mass is identified. Correlate with quantitative beta hCG to determine if this is appropriate. Ongoing follow-up of quantitative beta hCG is recommended. [] Course & Med Decision Making: Course & Med Decision Making Pertinent Labs and Imaging studies reviewed. (See chart for details) 29-year-old female presents to the emergency department for evaluation of lower abdominal pain, malodorous urine, and positive home test. Work-up includes a pelvic ultrasound, UA with urine test, and beta-hCG There was no IUP identified it with the pelvic ultrasound, the patient was encouraged to follow-up with RN INFUSION in 1 week for repeat hCG level and ultrasound. hCG level today was 469 Urinalysis revealed 1-4 white blood cells with few bacteria and many squamous cells it is likely contaminated I provided the patient with Dr. Dow's information for follow-up. Patient verbalized an understanding of home care, medications, follow-up, and return to ED instructions and was in agreement with the plan of care. Tamara Disclaimer: Tamara Disclaimer: This electronic medical record was generated, in whole or in part, using a voice recognition dictation system. Departure Departure Impression: Primary Impression: Abdominal pain during in first trimester Disposition: 01 HOME, SELF-CARE Condition: STABLE Referrals: NO PCP (PCP) Patient Instructions: Abdominal Pain During , [id number] Additional Instructions: FOLLOW UP IN ONE WEEK WITH DR. DOW'S OFFICE FOR REPEAT HCG AND ULTRASOUND. TODAY'S HCG LEVEL WAS 469. Justicifation of Admission Dx: Justifications for Admission: Justification of Admission Dx: N/A FELIZ PARISH PAPER INSPECTOR Sep 11, 2019 14:53
[2019-09-11 15:07] VITALS: BP 117/69
== END 2019-09-11 15:20 | disposition home or self-care (01) ==
LOC: ER 10:14
DX: O26.891 Other specified pregnancy related conditions, first trimester (principal); R10.30 Lower abdominal pain, unspecified; R30.0 Dysuria; Z3A.00 Weeks of gestation of pregnancy not specified
CPT/HCPCS: 36415; 76801; 81001; 81025; 84702; 99285-25

== ENCOUNTER 2019-09-17 11:14 | Emergency (ER) | payer SELFPAY ==
[~2019-09-17] VITALS: Ht 160 cm; Wt 70.4 kg
--- NOTE | 2019-09-17 12:00 | PHYS DOC ---
Past Medical History Past Medical History: No Pertinent History, Asthma, UTI Past Surgical History: Smoking Status: Never Smoker Alcohol Use: Occasionally Drug Use: None General Adult EDM: Chief Complaint: ABDOMINAL PAIN HPI: HPI: Patient is a 29 year old [f__sex] who presents with [chief complaint of lower abdominal pain and vaginal bleeding. Patient's last menstrual period was July 30 and has been seen here before for persistent abdominal and back pain. Patient started having some light vaginal bleeding with the last 24 hours. Patient denies any fevers chills cough vomiting diarrhea or dizziness.] Review of Systems: Review of Systems: Constitutional: Denies fever or chills. [] Eyes: Denies change in visual acuity. [] HENT: Denies nasal congestion or sore throat. [] Respiratory: Denies cough or shortness of breath. [] Cardiovascular: Denies chest pain or edema. [] GI: Denies , nausea, vomiting, bloody stools or diarrhea. [+ abd pain] : Denies dysuria. [+ vag bleed] Musculoskeletal: Denies back pain or joint pain. [] Integument: Denies rash. [] Neurologic: Denies headache, focal weakness or sensory changes. [] Endocrine: Denies polyuria or polydipsia. [] Lymphatic: Denies swollen glands. [] Psychiatric: Denies depression or anxiety. [] Heart Score: Risk Factors: Risk Factors: DM, Current or recent (<one month) smoker, HTN, HLP, family history of CAD, obesity. Risk Scores: Score 0 - 3: 2.5% MACE over next 6 weeks - Discharge Home Score 4 - 6: 20.3% MACE over next 6 weeks - Admit for Clinical Observation Score 7 - 10: 72.7% MACE over next 6 weeks - Early Invasive Strategies Allergies: Allergies: Allergies Coded Allergies Type Severity Reaction Last Updated Verified No Known Drug Allergies 07/13/15 No Physical Exam: PE: Constitutional: Well developed, well nourished, no acute distress, non-toxic appearance. [] HENT: Normocephalic, atraumatic, bilateral external ears normal, oropharynx moist, no oral exudates, nose normal. [] Eyes: PERRLA, EOMI, conjunctiva normal, no discharge. [] Neck: Normal range of motion, no tenderness, supple, no stridor. [] Cardiovascular:Heart rate regular rhythm, no murmur [] Lungs & Thorax: Bilateral breath sounds clear to auscultation [] Abdomen: Bowel sounds normal, soft, no tenderness, no masses, no pulsatile masses. [] Skin: Warm, dry, no erythema, no rash. [] Back: No tenderness, no CVA tenderness. [] Extremities: No tenderness, no cyanosis, no clubbing, ROM intact, no edema. [] Neurologic: Alert and oriented X 3, normal motor function, normal sensory function, no focal deficits noted. [] Psychologic: Affect normal, judgement normal, mood normal. [] Current Patient Data: Labs: Laboratory Tests Test 09/17/19 11:36 POC Urine HCG, Qualitative Hcg positive (Negative) EKG: EKG: [] Radiology/Procedures: Radiology/Procedures: [] IMAGING REPORT Signed PATIENT: JOSEP SALAZAROUNT: [id number] : 1990 LOCATION: ER AGE: 29 SEX: F EXAM STATUS: REG ER ORD. PHYSICIAN: URIEL BANERJEE MD REASON: vag bleed. lmp 07/30 PROCEDURE: OB <14 WKS W/TV Examination: OB <14 WKS W/TV History: Reason: vag bleed. Comparison/Correlation: 09/11/2019 OB ultrasound exam Findings: Transabdominal and transvaginal pelvic ultrasound exam was performed. Myometrium is unremarkable. Gestational sac within the superior uterine cavity with mean diameter of 0.75 cm corresponds to 5 weeks 3 day gestation. No pole identified. No subchorionic hemorrhage. Cervical length is 4.1 cm. Cul-de-sac is unremarkable. Right ovary measures 2.9 cm x 2.2 cm x 1.9 cm. Left ovary measures 3.4 cm x 2.4 cm x 2.8 cm. Left ovarian follicles are physiologic in appearance. Normal ovarian flow bilaterally is seen. Impression: Intrauterine gestational sac is noted in the interval. Size corresponds with 5 weeks 3 days gestation and ultrasound EDC of 05/16/2020. This is 1 week 3 days less than expected gestational age by last menstrual period. No subchorionic hemorrhage. follows not seen. Continued follow-up interval ultrasound exam and possibly follow-up serial beta hCG should be considered. Electronically signed by: Kei Cruz MD (09/17/2019 1:07 PM) [id number] DICTATED and SIGNED BY: KEI CRUZ MD DATE: 09/17/19 1376 Course & Med Decision Making: Course & Med Decision Making Pertinent Labs and Imaging studies reviewed. (See chart for details) [Assessment at 1418: Discussed with Dr. Day (ob) who suggest patient have no intercourse no work and to follow-up call the office for follow-up return if worsening symptoms worsening bleeding or pain] Patient's hCG has 10 times increased since last visit a week ago. Patient is clinically stable. Patient has a gestational sac but no yolk sac or heartbeat seen on ultrasound. Patient is stable and I used shirt bander to go over return precautions and the need for follow-up with DIGITAL DESIGNER. Dragon Disclaimer: Dragon Disclaimer: This electronic medical record was generated, in whole or in part, using a voice recognition dictation system. Departure Departure Impression: Primary Impression: Threatened miscarriage Disposition: 01 HOME, SELF-CARE Admitting Physician: JACE Condition: STABLE Referrals: NO PCP (PCP) SOPHY ANTONIO MD FOLLOW UP IN 2-3 DAYS Patient Instructions: Threatened Miscarriage Additional Instructions: EMERGENCY DEPARTMENT GENERAL DISCHARGE INSTRUCTIONS Thank you for coming to [facility] Emergency Department (ED) today and trusting us with you care. We trust that you had a positivie experience in our Emergency Department. If you wish to speak to the department management, you may call the sirector at [phone]. YOUR FOLLOW UP INSTRUCTIONS ARE FOLLOWS: 1. Do you have a private Doctor? If you do not have a private doctir, please ask for a resource list of physicians or clinics that may be able to assist you with follow up care. 2. The Emergency Physicain has interpreted your x-rays. The X-Ray specialist will also review them. If there is a change in the findingd, you will be notified in 48 hours when at all possible. 3. A lab test or culture has been done, your results will be reviewed and you will be notified if you need a change in treatment. ADDITIONAL INSTRUCTIONS AND INFORMATION: 1. Your care today has been supervised by a physician who is specially trained in emergency care. Many problems require more than one evaluation for a complete diagnosis and treatment. We recommend that you schedule your follow up appointment as recommended to ensure complete treatment of you illness or injury. If you are unable to obtain follow up care and continue to have a problem, or if your consition worsens, we recommend that you return to the ED. 2. We are not able to safelymdetermine your condition over the phone nor are we able to give sound medical advice over the phone. For these safety reasons, if you call for medical advice we will ask you to come to the ED for further evaluation. 3. If you have any questions regarding these discharge instructions please call the ED at [phone]. SAFETY INFORMATION: In the interest of safety, wellness, and injury prevention; we encourage you to wear your sealbelt, if you smoke; quite smoking, and we encourage family to use a protective helmet for bicycling and other sporting events that present an increased risk for head injusry. IF YOUR SYMPTOMS WORSEN OR NEW SYMPTOMS DEVELOP, OR YOU HAVE CONCERNS ABOUT YOUR CONDITION; OR IF YOUR CONDITION WORSENS WHILE YOU ARE WAITING FOR YOUR FOLLOW UP APPOINTMENT; EITHER CONTACT YOUR PRIMARY CARE DOCTOR, THE PHYSICIAN WHOSE NAME AND NUMBER YOU WERE GIVEN, OR RETURN TO THE ED IMMEDIATELY. YOUR ULTRASOUND SHOWS WHAT APPEARS TO BE AN EARLY BUT NO DEFINITIVE. YOU SHOULD NOT HAVE SEXUAL INTERCOURSE, NO WORK AND YOU NEED TO REST AND CALL DR. DAY FOR FOLLOW UP THIS WEEK. Justicifation of Admission Dx: Justifications for Admission: Justification of Admission Dx: N/A URIEL BANERJEE MD Sep 17, 2019 12:00
[2019-09-17 12:18] LABS: BASO % 0 % (0-3); EOS # 0.1 x10^3/uL (0.0-0.7); EOS % 1 % (0-3); HEMATOCRIT 37.5 % (36.0-47.0); HEMOGLOBIN 12.9 g/dL (12.0-15.5); LYMPH # 2.2 x10^3/uL (1.0-4.8); LYMPH % 19 % (24-48); MEAN CORPUSCULAR HEMOGLOBIN 29 pg (25-35); MEAN CORPUSCULAR HGB CONC 34 g/dL (31-37); MEAN CORPUSCULAR VOLUME 85 fL (79-100); MONO # 0.6 x10^3/uL (0.0-1.1); MONO % 5 % (0-9); NEUT # 8.4 x10^3/uL (1.8-7.7); NEUT % 75 % (31-73); PLATELET COUNT 203 x10^3/uL (140-400); RED BLOOD COUNT 4.43 x10^6/uL (3.50-5.40); RED CELL DISTRIBUTION WIDTH 13.5 % (11.5-14.5); WHITE BLOOD COUNT 11.3 x10^3/uL (4.0-11.0)
[2019-09-17 12:25] LABS: CALCIUM 8.5 mg/dL (8.5-10.1); CREATININE 0.8 mg/dL (0.6-1.0)
[2019-09-17 12:31] LABS: ALBUMIN 3.7 g/dL (3.4-5.0); ALBUMIN/GLOBULIN RATIO 0.9 (1.0-1.7); TOTAL BILIRUBIN 0.2 mg/dL (0.2-1.0); TOTAL PROTEIN 7.6 g/dL (6.4-8.2)
--- NOTE | 2019-09-17 13:09 | RAD ---
Examination: OB <14 WKS W/TV History: Reason: vag bleed. Comparison/Correlation: 09/11/2019 OB ultrasound exam Findings: Transabdominal and transvaginal pelvic ultrasound exam was performed. Myometrium is unremarkable. Gestational sac within the superior uterine cavity with mean diameter of 0.75 cm corresponds to 5 weeks 3 day gestation. No pole identified. No subchorionic hemorrhage. Cervical length is 4.1 cm. Cul-de-sac is unremarkable. Right ovary measures 2.9 cm x 2.2 cm x 1.9 cm. Left ovary measures 3.4 cm x 2.4 cm x 2.8 cm. Left ovarian follicles are physiologic in appearance. Normal ovarian flow bilaterally is seen. Impression: Intrauterine gestational sac is noted in the interval. Size corresponds with 5 weeks 3 days gestation and ultrasound EDC of 05/16/2020. This is 1 week 3 days less than expected gestational age by last menstrual period. No subchorionic hemorrhage. follows not seen. Continued follow-up interval ultrasound exam and possibly follow-up serial beta hCG should be considered. Electronically signed by: Kei Marroquin MD (09/17/2019 1:07 PM) [id number]
[2019-09-17 14:36] VITALS: BP 120/61
== END 2019-09-17 15:00 | disposition home or self-care (01) ==
LOC: ER 11:14
DX: O20.0 Threatened abortion (principal); R10.30 Lower abdominal pain, unspecified; J45.909 Unspecified asthma, uncomplicated; Z98.890 Other specified postprocedural states; Z3A.01 Less than 8 weeks gestation of pregnancy
CPT/HCPCS: 36415; 76801; 76817; 80053; 81025; 84702; 85025; 86900; 86901; 99285

== ENCOUNTER → 2020-04-30 | Outpatient (CLI) | payer SELFPAY ==
[~2020-04-30] MED LIST changes: +DOCU-109 PO; +FERR325T14 PO; +IBUP-1060 PO; +OXYC1TAB15 PO
== END ==
LOC: LAB 12:22
PROVIDERS: ATTEND Obstetrics & Gynecology
DX: Z01.812 Encounter for preprocedural laboratory examination (principal); Z20.822 Contact with and (suspected) exposure to COVID-19
CPT/HCPCS: U0003

== ENCOUNTER 2020-05-03 06:04 | Inpatient (IN) | payer SELFPAY ==
[2020-05-03] VITALS (9 sets, daily range): BP systolic 109–125; BP diastolic 68–79
[~2020-05-03] VITALS: Ht 152.4 cm; Wt 83.3 kg
[~2020-05-03 06:04] MED LIST changes: -DOCU-109 PO; -FERR325T14 PO; -IBUP-1060 PO; -OXYC1TAB15 PO
[2020-05-03] MEDS ORDERED: IV NORMAL SALINE 1000ML BAG 1,000 ML IV SCH (06:30)
[2020-05-03] MEDS: IV RINGERS,LACTATED 1000ML 1,000 ML IV SCH ×4 (06:48→22:55)
[2020-05-03 06:59] LABS: HEMATOCRIT 30.7 % (36.0-47.0); HEMOGLOBIN 10.3 g/dL (12.0-15.5); RED BLOOD COUNT 3.53 x10^6/uL (3.50-5.40); WHITE BLOOD COUNT 8.5 x10^3/uL (4.0-11.0)
[2020-05-03] MEDS ORDERED: CITRIC ACID/SODIUM CITRATE 30 ML SOLUTION. PO ONE (07:00)
[2020-05-03 07:29] LABS: BILIRUBIN,URINE NEGATIVE (NEG); CLARITY,URINE CLOUDY; COLOR,URINE YELLOW; NITRITE,URINE NEGATIVE (NEG); PH,URINE 6.5 (<5.0-8.0); PROTEIN,URINE NEGATIVE (NEG-TRACE); UROBILINOGEN,URINE 0.2 mg/dL (0.2 mg/dL)
[2020-05-03] MEDS ORDERED: ONDANSETRON PF 4 MG/2 ML VIAL. ONE (07:47)
[2020-05-03] MEDS ORDERED: MORPHINE PF 10 MG/10 ML AMPUL. ONE (07:47)
[2020-05-03] MEDS ORDERED: fentaNYL PF VIAL 100 MCG/2 ML VIAL ONE (07:47)
[2020-05-03] MEDS ORDERED: OXYTOCIN 10 UNIT/ML VIAL. ONE (07:47)
[2020-05-03] MEDS ORDERED: FAMOTIDINE 20 MG/2 ML VIAL ONE (07:47)
[2020-05-03] MEDS ORDERED: ePHEDrine PF IN SALINE 50 MG/10 ML SYRINGE. IV ONE (07:53)
--- NOTE | 2020-05-03 07:53 | PDOC1 ---
SIGN LETTERER H&P Date of Admission: Date of Admission: May 03, 2020 at 06:04 History of Present Illness: EDC: 05/06/20 LMP: 07/31/19 29y @ 39.4 by L=9 presents for scheduled C/S. It is unclear why she had the last C/S. It is a combination of NRFHT and HTN issues. She states that they did get to a point to where they could push and that baby came out blue. Initially the pt desired a TOLAC, but at her last appt with JOSE Zepeda she was told that the provider was more comfortable with her having a repeat C/S since she was unsure of the scar on her uterus (vertical midline skin incision). The pt reported with her last the skin inc opened. PMH: Denies PSH: C/S x 1 Meds: PNV, ASA All: NKDA OBHx: TC/S x 1, AB x 1 SH: no tob, no EtOH FH: Noncontributory Medications: Meds: Current Medications Medications (Trade) Dose Ordered Sig/Patito Route PRN Reason Start Time Stop Time Status Last Admin Dose Admin Ringer's Solution 1,000 ml @ 125 mls/hr Q8H IV 05/03/20 06:30 05/03/20 07:36 Cefazolin Sodium/ Dextrose 50 ml @ 100 mls/hr 1X ONCE IV 05/03/20 07:00 05/03/20 07:29 DC 05/03/20 07:35 Citric Acid/ Sodium Citrate (Bicitra) 30 ml 1X ONCE PO 05/03/20 07:00 05/03/20 07:01 DC 05/03/20 07:36 Allergies: Coded Allergies: No Known Drug Allergies (Unverified , 07/13/15) Physical Exam: Vital Signs: Vital Signs Date Time Temp Pulse Resp B/P (MAP) Pulse Ox O2 Delivery O2 Flow Rate FiO2 05/03/20 06:49 98.7 95 16 121/76 (91) 98 Room Air 98.7 PE: GENERAL: No apparent distress. Alert and oriented. HEENT: Head normocephalic, atraumatic. NECK: Supple LUNGS: Clear to auscultation. HEART: RRR, S1, S2 present, pulses intact ABDOMEN: Soft, positive bowel sounds. EXTREMITIES: No cyanosis or edema. NEUROLOGIC: Normal speech, normal tone PSYCHIATRIC: Normal affect, normal mood. SKIN: No ulceration. FHT: 140s +acels/no decels/mLTV Eckley: quiet Labs: Laboratory Tests Test 05/03/20 06:30 White Blood Count 8.5 x10^3/uL (4.0-11.0) Red Blood Count 3.53 x10^6/uL (3.50-5.40) Hemoglobin 10.3 g/dL (12.0-15.5) L Hematocrit 30.7 % (36.0-47.0) L Mean Corpuscular Volume 87 fL (79-100) Mean Corpuscular Hemoglobin 29 pg (25-35) Mean Corpuscular Hemoglobin Concent 33 g/dL (31-37) Red Cell Distribution Width 14.0 % (11.5-14.5) Platelet Count 129 x10^3/uL (140-400) L Laboratory Tests 05/03/20 06:30 Laboratory Tests 05/03/20 06:30 Assessment & Plan: A/P 29y @ 39.4 by L=9 1.) Prev C/S x 1 desires repeat 2.) 9 day difference in LMP and u/s 3.) TDAP given 04/08/20 4.) Fetus cat I FHT 5.) GBS neg ANKUSH DOW MD May 03, 2020 07:53
[2020-05-03 08:00] LABS: BACTERIA,URINE 0 /HPF (0-FEW); RBC,URINE 0 /HPF (0-2); WBC,URINE 0 /HPF (0-4)
[2020-05-03] MEDS ORDERED: MMR per PROTOCOL. MC PRN (09:30)
[2020-05-03] MEDS ORDERED: diphenhydrAMINE ORAL ELIXIR 12.5 MG/5 ML ML PO PRN (09:30)
[2020-05-03] MEDS ORDERED: 0.9 % SODIUM CHLORIDE 10 ML DISP.SYRIN. IV PRN (09:30)
[2020-05-03] MEDS ORDERED: TDaP (Adacel) per PROTOCOL. MC PRN (09:30)
[2020-05-03] MEDS ORDERED: ACETAMINOPHEN 325 MG TABLET. PO PRN (09:30)
[2020-05-03] MEDS ORDERED: OXYTOCIN 30 UNIT/500 ML PREMIX 500 ML IV PRN (09:30)
[2020-05-03] MEDS ORDERED: BENZOCAINE 20% TOPICAL AEROSOL SPRAY 57GM CAN. TP PRN (09:30)
--- NOTE | 2020-05-03 10:25 | PDOC4 ---
OPERATIVE NOTE: PreOp Dx: 1.) IUP @ 39.4 by L=9 , 2.) Prev C/S x 1 desires repeat, 3.) GBS neg PostOp Dx: same Procedure: RLTCS Surgeon: Mery Dow Anesthesia: Spinal EBL: 900 cc Fluids: 1500 cc UOP: 300 cc Complications: None Findings: viable male infant delivered at 0840. Wt 8lb 1oz. APGARS 8/9. Nml tubes and ovaries. Path: Cord blood. ANKUSH DOW MD May 03, 2020 10:25
--- NOTE | 2020-05-03 11:03 | OP ---
DATE OF SURGERY: 05/03/2020 PREOPERATIVE DIAGNOSES: 1. Intrauterine at 39 weeks and 4 days by LMP equal to a 9-week ultrasound. 2. Previous section x 1, desires repeat. 3. GBS negative. POSTOPERATIVE DIAGNOSES: 1. Intrauterine at 39 weeks and 4 days by LMP equal to a 9-week ultrasound. 2. Previous section x 1, desires repeat. 3. GBS negative. PROCEDURE: Repeat low transverse . SURGEON: Sky Dow MD ANESTHESIA: Spinal. ESTIMATED BLOOD LOSS: 900 mL. FLUIDS: 1500 mL. URINE OUTPUT: 300 mL. COMPLICATIONS: None. FINDINGS: Viable male delivered at 0840 hours, weighing 8 pounds 1 ounce with Apgars of 8 and 9. Normal tubes and ovaries noted. PATHOLOGY: Cord blood. DESCRIPTION OF PROCEDURE: The patient was taken to the operating room where spinal anesthesia was placed without difficulty. The patient was prepped and draped in normal sterile fashion with a left lateral tilt. The keloid of her previous vertical midline incision was then cut out in an elliptical manner using the scalpel. The incision was then cut down to the fascia where the fascia was then opened vertically along this midline. Once the peritoneum had been identified. It was grasped with 2 hemostats and tented up and entered sharply with Metzenbaum scissors. Digital examination of the peritoneal cavity revealed no adhesions. At that point, the peritoneal incision was then extended superiorly and inferiorly with good visualization of the bladder with traction and countertraction. At that point, the Gus ring was then placed into the abdomen to better visualize the lower uterine segment. Metzenbaum scissors were used to create a bladder flap. The lower uterine segment was then incised in transverse fashion with the scalpel. The head was then flexed and brought to the hysterotomy. The rest of infant was delivered atraumatically. The nose and mouth were bulb suctioned. The cord was double clamped and cut and infant was handed over to the awaiting ocean freight forwarder. Placenta was then removed manually. The uterus was then cleared of all clots and debris. Uterine incision was then repaired with #1 chromic in a running locked fashion. Second layer of the same suture was used to imbricate. There were some areas along the incision line that were bleeding. A [id number]-[id number] stitch of 2-0 chromic was then placed at the left lateral edge of the hysterotomy. This was then ran in a running locked fashion until hemostasis was achieved. There was one area in the midline that still was bleeding, so another [id number] stitch of 2-0 chromic was placed. Good hemostasis was noted at that point. At that point, the gutters were copiously irrigated and cleared of all clots and debris. The fascia and muscle were then closed in a modified Smead-Doll technique with one pass including just the fascia and the subsequent pass including the fascia, muscle and peritoneum. This was done with every other pass in a running manner. Once the fascia was closed, the subcutaneous space was closed with 2-0 Vicryl with 3 interrupted stitches. The skin was then closed with a 3-0 Monocryl in a subcutaneous manner. The patient tolerated the procedure well. Sponge, laps, and needles correct x 3. Two grams of Ancef were given prior to the procedure. The patient tolerated the procedure well and was taken to the recovery room in stable condition. SKY DOW MD DR: FELTON/nils JOB#: [id number] / [id number] ANNELIESE
[2020-05-03] MEDS: KETOROLAC 30 MG/ML VIAL. IVP PRN (11:18)
--- NOTE | 2020-05-03 13:30 | NUR ---
Pt. transferred to room 341, this RN continues to care for pt. No change in pt. condition, pt. moves legs with no difficulty, tolerates clear liquids at this time
[2020-05-04] VITALS: BP 108/71
[2020-05-04] MEDS: KETOROLAC 30 MG/ML VIAL. IVP PRN (01:54)
[2020-05-04 04:00] VITALS: BP 95/57
[2020-05-04 07:51] LABS: HEMATOCRIT 23.2 % (36.0-47.0); HEMOGLOBIN 7.7 g/dL (12.0-15.5); RED BLOOD COUNT 2.65 x10^6/uL (3.50-5.40); WHITE BLOOD COUNT 9.8 x10^3/uL (4.0-11.0)
[2020-05-04] MEDS: FERROUS SULFATE 325 MG TABLET. PO SCH (08:58)
[2020-05-04] MEDS: PRENATAL MULTIVITAMIN TABLET. PO SCH (08:58)
[2020-05-04] MEDS: oxyCODONE/APAP 5/325 1 TAB TABLET PO PRN ×4 (08:59→19:49)
[2020-05-04] MEDS: SIMETHICONE 80 MG TAB.CHEW PO PRN (09:00)
[2020-05-04] MEDS ORDERED: MULTIVITAMIN with MINERAL TABLET. PO SCH (09:00)
[2020-05-04 09:06] VITALS: BP 103/60
--- NOTE | 2020-05-04 09:12 | PDOC ---
BLUEPRINTING AND PHOTOCOPY SUPERVISOR PROGRESS NOTE Date of Service: DATE: 05/04/20 TIME: 09:11 Subjective: Pt with good pain control. She does report some gas pain when she stands and walks. Yvan PO. Voiding. Minimal lochia. Objective: Vital Signs: Vital Signs Date Time Temp Pulse Resp B/P (MAP) Pulse Ox O2 Delivery O2 Flow Rate FiO2 05/03/20 13:44 97.4 76 16 122/74 (90) 96 Room Air 97.4 Vital Signs Date Time Temp Pulse Resp B/P (MAP) Pulse Ox O2 Delivery O2 Flow Rate FiO2 05/04/20 08:59 16 96 Room Air 05/04/20 04:00 97.5 83 95/57 (70) 97.5 Labs: Laboratory Tests Test 05/04/20 07:05 White Blood Count 9.8 x10^3/uL (4.0-11.0) Red Blood Count 2.65 x10^6/uL (3.50-5.40) L Hemoglobin 7.7 g/dL (12.0-15.5) L Hematocrit 23.2 % (36.0-47.0) L Mean Corpuscular Volume 88 fL (79-100) Mean Corpuscular Hemoglobin 29 pg (25-35) Mean Corpuscular Hemoglobin Concent 33 g/dL (31-37) Red Cell Distribution Width 14.0 % (11.5-14.5) Platelet Count 125 x10^3/uL (140-400) L Laboratory Tests 05/04/20 07:05 Laboratory Tests 05/04/20 07:05 Physical Exam: GENERAL: No apparent distress. Alert and oriented. HEENT: Head normocephalic, atraumatic. NECK: Supple LUNGS: Clear to auscultation. HEART: RRR, S1, S2 present, pulses intact ABDOMEN: Soft, positive bowel sounds. EXTREMITIES: No cyanosis or edema. NEUROLOGIC: Normal speech, normal tone PSYCHIATRIC: Normal affect, normal mood. SKIN: No ulceration. Inc: C/D/I FFNT below umb No C/C/E Assessment & Plan: A/P 29y POD #1 s/p RLTCS 1.) PO doing well 2.) Anemia Hgb 10.3 -> 7.7 3.) TDAP given 04/08/20 4.) Cont PO care ANKUSH DOW MD May 04, 2020 09:12
[2020-05-04 14:04] VITALS: BP 103/60
[2020-05-04] MEDS: DOCUSATE SODIUM 100 MG CAPSULE. PO PRN (17:05)
[2020-05-04] MEDS: IBUPROFEN 400 MG TABLET. PO PRN (17:05)
[2020-05-04 22:02] VITALS: BP 89/55
[2020-05-05] MEDS: oxyCODONE/APAP 5/325 1 TAB TABLET PO PRN ×3 (01:48→12:04)
[2020-05-05 02:00] VITALS: BP 92/60
[2020-05-05 05:00] VITALS: BP 110/73
[2020-05-05] MEDS: IBUPROFEN 400 MG TABLET. PO PRN (05:26)
[2020-05-05] MEDS: SIMETHICONE 80 MG TAB.CHEW PO PRN ×2 (05:34→09:56)
[2020-05-05] MEDS ORDERED: FERR325T14 PO (08:02)
[2020-05-05] MEDS ORDERED: IBUP-1060 PO (08:02)
[2020-05-05] MEDS ORDERED: DOCU-109 PO (08:02)
[2020-05-05] MEDS ORDERED: OXYC1TAB15 PO (08:02)
--- NOTE | 2020-05-05 08:16 | PDOC ---
PROGRAM PROPOSALS COORDINATOR PROGRESS NOTE Date of Service: DATE: 05/05/20 TIME: 08:16 Subjective: Pt with good pain control. Yvan PO. Voiding. Minimal lochia. Objective: Vital Signs: Vital Signs Date Time Temp Pulse Resp B/P (MAP) Pulse Ox O2 Delivery O2 Flow Rate FiO2 05/04/20 08:59 16 96 Room Air 05/04/20 09:06 98.3 98 103/60 (74) 98.3 Vital Signs Date Time Temp Pulse Resp B/P (MAP) Pulse Ox O2 Delivery O2 Flow Rate FiO2 05/05/20 05:27 18 Room Air 05/05/20 05:00 97.8 86 110/73 (85) 97.8 05/04/20 22:02 98 Physical Exam: GENERAL: No apparent distress. Alert and oriented. HEENT: Head normocephalic, atraumatic. NECK: Supple LUNGS: Clear to auscultation. HEART: RRR, S1, S2 present, pulses intact ABDOMEN: Soft, positive bowel sounds. EXTREMITIES: No cyanosis or edema. NEUROLOGIC: Normal speech, normal tone PSYCHIATRIC: Normal affect, normal mood. SKIN: No ulceration. Inc: C/D/I FFNT below umb No C/C/E Assessment & Plan: A/P 29y POD #2 s/p RLTCS 1.) PO doing well 2.) Anemia Hgb 10.3 -> 7.7, on Fe 3.) TDAP given 04/08/20 4.) D/C home ANKUSH DOW MD May 05, 2020 08:16
--- NOTE | 2020-05-05 09:38 | DS ---
DATE OF DISCHARGE: 05/05/2020 ADMISSION DIAGNOSES: 1. Intrauterine at 39 weeks and 4 days by LMP equal to a 9-week ultrasound. 2. A 9-day difference between the LMP and her ultrasound. 3. Previous section x 1, desires repeat. 4. GBS negative. DISCHARGE DIAGNOSES: 1. Intrauterine at 39 weeks and 4 days by LMP equal to a 9-week ultrasound. 2. A 9-day difference between the LMP and her ultrasound. 3. Previous section x 1, desires repeat. 4. GBS negative. PROCEDURE: Repeat low transverse . BRIEF HOSPITAL COURSE: The patient is a 29-year-old 3, para 1-0-1-1, at 39 weeks and 4 days by LMP equal to a 9-week ultrasound, who presented to Labor and Delivery for a scheduled . It was unclear why the patient had her first . From her description, it sounds like it was a combination of nonreassuring heart tones and hypertension. She did say that it got to a point where they could push, but the baby came out blue. Initially, the patient was leaning towards a trial of labor after . But with her last appointment with a nurse practitioner, the provider told her that she would be more comfortable with her having a repeat due to the unknown scar on her uterus considering that she had a vertical midline on her skin. The patient underwent said procedure on 05/03/2020. See operative note for full detail. By postop day #2, the patient was meeting all discharge criteria and was subsequently discharged home. Of note, the patient's hemoglobin on admission was 10.3 and after delivery was found to be 7.7. DISCHARGE INSTRUCTIONS: The patient was told not to lift anything greater than 20 pounds, have pelvic rest for 6 weeks, not to drive on narcotics. CALL IF: The patient was to call if she had fevers, chills, nausea, vomiting, abdominal pain or any additional questions or concerns. FOLLOWUP APPOINTMENT: The patient is to follow up on 05/13/2020 at 1:40 p.m. for an incision check. DISCHARGE MEDICATIONS: The patient was given a prescription for Percocet 5-10 pills; Motrin 800 mg, 30 pills; Colace 100 mg, 30 pills and ferrous sulfate 325 mg, 30 pills. ANKUSH DOW MD DR: Nas JOB#: [id number] / [id number] ANNELIESE
[2020-05-05] MEDS: FERROUS SULFATE 325 MG TABLET. PO SCH (09:56)
[2020-05-05] MEDS: DOCUSATE SODIUM 100 MG CAPSULE. PO PRN (09:56)
[2020-05-05] MEDS: PRENATAL MULTIVITAMIN TABLET. PO SCH (09:56)
[2020-05-05 12:00] VITALS: BP 116/82
--- NOTE | 2020-05-05 12:35 | NUR ---
Pt. wheeled down to vehicle with nursing staff and s/o. No questions verbalized at this time.
== END 2020-05-05 12:35 | disposition home or self-care (01) | DRG 788 ==
LOC: 3 SO LND 06:04 → 3 NORTH 19:56
PROVIDERS: ADMIT Obstetrics & Gynecology; ATTEND Obstetrics & Gynecology
PROC: 10D00Z1 Extraction of Products of Conception, Low, Open Approach (ICD-10-PCS; principal; 2020-05-03)
DX: O34.211 Maternal care for low transverse scar from previous cesarean delivery (principal); L91.0 Hypertrophic scar; O90.81 Anemia of the puerperium; O99.72 Diseases of the skin and subcutaneous tissue complicating childbirth; Z3A.39 39 weeks gestation of pregnancy; Z37.0 Single live birth
CPT/HCPCS: 36415; 81001; 85027; 86592; 86850; 86900; 86901; C1755; J0690; J1885; J2274; J2405; J2590; J3010; J3490; J7120; G0378

== ENCOUNTER 2020-05-19 10:31 | Emergency (ER) | payer SELFPAY ==
[~2020-05-19] VITALS: Ht 152.4 cm; Wt 53.1 kg
[~2020-05-19 10:31] MED LIST changes: +DOCU-109 PO; +FERR325T14 PO; +IBUP-1060 PO; +OXYC1TAB15 PO
[2020-05-19] MEDS ORDERED: cefTRIAXone IV Push 1 GM VIAL. IVP ONE (11:30)
[2020-05-19] MEDS ORDERED: ACETAMINOPHEN 500 MG TABLET PO ONE (11:30)
[2020-05-19] MEDS: IV NORMAL SALINE 1000ML BAG 1,380 ML IV SCH ×3 (11:42→13:30)
[2020-05-19 11:47] LABS: BASO % 0 % (0-3); EOS % 0 % (0-3); HEMATOCRIT 33.3 % (36.0-47.0); HEMOGLOBIN 11.2 g/dL (12.0-15.5); LYMPH # 1.1 x10^3/uL (1.0-4.8); LYMPH % 8 % (24-48); MEAN CORPUSCULAR HEMOGLOBIN 29 pg (25-35); MEAN CORPUSCULAR HGB CONC 34 g/dL (31-37); MEAN CORPUSCULAR VOLUME 86 fL (79-100); MONO # 0.3 x10^3/uL (0.0-1.1); MONO % 2 % (0-9); NEUT # 11.7 x10^3/uL (1.8-7.7); NEUT % 89 % (31-73); PLATELET COUNT 243 x10^3/uL (140-400); RED BLOOD COUNT 3.88 x10^6/uL (3.50-5.40); RED CELL DISTRIBUTION WIDTH 13.7 % (11.5-14.5); WHITE BLOOD COUNT 13.2 x10^3/uL (4.0-11.0)
[2020-05-19 11:51] LABS: BILIRUBIN,URINE NEGATIVE (NEG); CLARITY,URINE CLEAR; COLOR,URINE YELLOW; NITRITE,URINE NEGATIVE (NEG); PROTEIN,URINE NEGATIVE (NEG-TRACE); UROBILINOGEN,URINE 0.2 mg/dL (0.2 mg/dL)
[2020-05-19 12:09] LABS: ALBUMIN 3.2 g/dL (3.4-5.0); ALBUMIN/GLOBULIN RATIO 0.7 (1.0-1.7); CALCIUM 8.3 mg/dL (8.5-10.1); CREATININE 0.8 mg/dL (0.6-1.0); POTASSIUM 3.6 mmol/L (3.5-5.1); TOTAL BILIRUBIN 0.5 mg/dL (0.2-1.0); TOTAL PROTEIN 7.6 g/dL (6.4-8.2)
[2020-05-19 12:15] LABS: BACTERIA,URINE FEW /HPF (0-FEW); RBC,URINE 0 /HPF (0-2)
--- NOTE | 2020-05-19 12:40 | RAD ---
EXAM: XR CHEST 1V 05/19/2020 12:03 PM CLINICAL INDICATION: Fever COMPARISON: Chest radiograph 11/05/2018 TECHNIQUE: AP semiupright view of the chest FINDINGS: The heart and mediastinum are normal. Lungs are well-expanded and clear. No consolidatio n, pleural effusion, or pneumothorax. Pulmonary vascularity is normal. There is an old left inferior lateral rib fracture. IMPRESSION: Normal chest. Electronically signed by: Isis Rollins MD (05/19/2020 12:38 PM) [id number]
[2020-05-19 14:30] VITALS: BP 125/68
[2020-05-19 14:40] LABS: % BANDS 2 % (0-9); % EOS 1 % (0-5); % LYMPHS 11 % (24-48); % MONOS 3 % (0-10); % SEGS 83 % (35-66); PLT ESTIMATE ADEQUATE (ADEQUATE)
--- NOTE | 2020-05-19 14:47 | PHYS DOC ---
Past Medical History Past Medical History: Asthma, UTI Past Surgical History: Smoking Status: Never Smoker Alcohol Use: Occasionally Drug Use: None General Adult EDM: Chief Complaint: POST-OP PROBLEM HPI: HPI: Patient is a 29 year old female 2 para 2 who had a on 021 presenting today complaining of fever and headache. Patient states she had a headache last week and developed a fever last night. Denies any nausea or vomiting. Denies any unusual vaginal bleeding. Denies any coughing or congestion. Denies any neck pain. 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 [] HENT: Denies nasal congestion or sore throat. [] Respiratory: Denies cough or shortness of breath. [] Cardiovascular: Denies chest pain or edema. [] GI: Denies abdominal pain, nausea, vomiting, bloody stools or diarrhea. [] : Denies dysuria. [] Musculoskeletal: Denies back pain or joint pain. [] Integument: Denies rash. [] Neurologic: Denies headache, focal weakness or sensory changes. [] Psychiatric: Denies depression or anxiety. [] Heart Score: C/O Chest Pain: N/A Risk Factors: Risk Factors: DM, Current or recent (<one month) smoker, HTN, HLP, family history of CAD, obesity. Risk Scores: Score 0 - 3: 2.5% MACE over next 6 weeks - Discharge Home Score 4 - 6: 20.3% MACE over next 6 weeks - Admit for Clinical Observation Score 7 - 10: 72.7% MACE over next 6 weeks - Early Invasive Strategies Current Medications: Current Medications Medications (Trade) Dose Ordered Sig/Patito Start Time Stop Time Status Last Admin Dose Admin Acetaminophen (Tylenol) 1,000 mg 1X ONCE 05/19/20 11:30 05/19/20 11:31 DC 05/19/20 11:41 1,000 MG Ceftriaxone Sodium (Rocephin) 1 gm 1X ONCE 05/19/20 11:30 05/19/20 11:31 DC 05/19/20 11:42 1 GM Sodium Chloride 1,380 ml @ 1,380 mls/hr Q1H 05/19/20 11:30 05/19/20 13:30 1,380 MLS/HR Allergies: Allergies: Allergies Coded Allergies Type Severity Reaction Last Updated Verified No Known Drug Allergies 07/13/15 No Physical Exam: PE: Constitutional: Well developed, well nourished, no acute distress, non-toxic appearance. [] HENT: Normocephalic, atraumatic, bilateral external ears normal, oropharynx moist, no oral exudates, nose normal. Eyes: PERRLA, EOMI, conjunctiva normal, no discharge. [] Neck: Normal range of motion, no tenderness, supple, no stridor. Negative Kernig and Brudzinski sign Cardiovascular:Heart rate regular rhythm, no murmur [] Lungs & Thorax: Bilateral breath sounds clear to auscultation [] Abdomen: Midline abdominal incision is clean dry and intact. There are no signs of infection. Bowel sounds normal, soft, no tenderness, no masses, no pulsatile masses. [] Skin: Warm, dry, no erythema, no rash. [] Back: No tenderness, no CVA tenderness. [] Extremities: No tenderness, no cyanosis, no clubbing, ROM intact, no edema. [] Neurologic: Alert and oriented X 3, normal motor function, normal sensory function, no focal deficits noted. [] Psychologic: Affect normal, judgement normal, mood normal. [] Current Patient Data: Labs: Laboratory Tests Test 05/19/20 10:45 05/19/20 10:51 05/19/20 11:30 05/19/20 11:35 Urine Collection Type Unknown Urine Color Yellow Urine Clarity Clear Urine pH 6.0 (<5.0-8.0) Urine Specific [place] 1.015 (1.000-1.030) Urine Protein Negative mg/dL (NEG-TRACE) Urine Glucose (UA) Negative mg/dL (NEG) Urine Ketones (Stick) Negative mg/dL (NEG) Urine Blood Large (NEG) Urine Nitrite Negative (NEG) Urine Bilirubin Negative (NEG) Urine Urobilinogen Dipstick 0.2 mg/dL (0.2 mg/dL) Urine Leukocyte Esterase Small (NEG) Urine RBC 0 /HPF (0-2) Urine WBC 5-10 /HPF (0-4) Urine Squamous Epithelial Cells Many /LPF Urine Bacteria Few /HPF (0-FEW) Urine Mucus Slight /LPF POC Urine HCG, Qualitative Hcg negative (Negative) Sodium Level 139 mmol/L (136-145) Potassium Level 3.6 mmol/L (3.5-5.1) Chloride Level 101 mmol/L (98-107) Carbon Dioxide Level 25 mmol/L (21-32) Anion Gap 13 (6-14) Blood Urea Nitrogen 9 mg/dL (7-20) Creatinine 0.8 mg/dL (0.6-1.0) Estimated GFR (Cockcroft-Gault) 86.0 BUN/Creatinine Ratio 11 (6-20) Glucose Level 80 mg/dL (70-99) Lactic Acid Level 1.0 mmol/L (0.4-2.0) Calcium Level 8.3 mg/dL (8.5-10.1) L Total Bilirubin 0.5 mg/dL (0.2-1.0) Aspartate Amino Transferase (AST) 18 U/L (15-37) Alanine Aminotransferase (ALT) 30 U/L (14-59) Alkaline Phosphatase 100 U/L (46-116) Total Protein 7.6 g/dL (6.4-8.2) Albumin 3.2 g/dL (3.4-5.0) L Albumin/Globulin Ratio 0.7 (1.0-1.7) L Procalcitonin < 0.10 ng/mL (0.00-0.10) White Blood Count 13.2 x10^3/uL (4.0-11.0) H Red Blood Count 3.88 x10^6/uL (3.50-5.40) Hemoglobin 11.2 g/dL (12.0-15.5) L Hematocrit 33.3 % (36.0-47.0) L Mean Corpuscular Volume 86 fL (79-100) Mean Corpuscular Hemoglobin 29 pg (25-35) Mean Corpuscular Hemoglobin Concent 34 g/dL (31-37) Red Cell Distribution Width 13.7 % (11.5-14.5) Platelet Count 243 x10^3/uL (140-400) Neutrophils (%) (Auto) 89 % (31-73) H Lymphocytes (%) (Auto) 8 % (24-48) L Monocytes (%) (Auto) 2 % (0-9) Eosinophils (%) (Auto) 0 % (0-3) Basophils (%) (Auto) 0 % (0-3) Neutrophils # (Auto) 11.7 x10^3/uL (1.8-7.7) H Lymphocytes # (Auto) 1.1 x10^3/uL (1.0-4.8) Monocytes # (Auto) 0.3 x10^3/uL (0.0-1.1) Eosinophils # (Auto) 0.0 x10^3/uL (0.0-0.7) Basophils # (Auto) 0.0 x10^3/uL (0.0-0.2) Segmented Neutrophils % 83 % (35-66) H Band Neutrophils % 2 % (0-9) Lymphocytes % 11 % (24-48) L Monocytes % 3 % (0-10) Eosinophils % 1 % (0-5) Platelet Estimate Adequate (ADEQUATE) Laboratory Tests 05/19/20 11:35 Laboratory Tests 05/19/20 11:30 Vital Signs: Vital Signs Date Time Temp Pulse Resp B/P (MAP) Pulse Ox O2 Delivery O2 Flow Rate FiO2 05/19/20 14:00 88 97 05/19/20 12:59 100.5 100.5 05/19/20 12:33 16 05/19/20 11:08 117/70 (86) Room Air EKG: EKG: [] Radiology/Procedures: Radiology/Procedures: []PROCEDURE: PORTABLE CHEST 1V EXAM: XR CHEST 1V 05/19/2020 12:03 PM CLINICAL INDICATION: Fever COMPARISON: Chest radiograph 11/05/2018 TECHNIQUE: AP semiupright view of the chest FINDINGS: The heart and mediastinum are normal. Lungs are well-expanded and clear. No consolidation, pleural effusion, or pneumothorax. Pulmonary vascu larity is normal. There is an old left inferior lateral rib fracture. IMPRESSION: Normal chest. Electronically signed by: Isis Rollins MD (05/19/2020 12:38 PM) [id number] DICTATED and SIGNED BY: ISIS ROLLINS MD DATE: 05/19/20 [id number] 0 Course & Med Decision Making: Course & Med Decision Making Pertinent Labs and Imaging studies reviewed. (See chart for details) This is a 29-year-old female patient presenting to the ED today complaining of a fever, symptoms began last night. Also complaining of a headache that occurred last week. Patient had a on May 03, 2020. Vitals on arrival to the ED temperature 102.1, respiration 18, heart rate 101, blood pressure 117/70, O2 sats 98% Negative urine hCG. Urine with small amount of leukocytes though noted for squamous cells epithelium CBC with a WBC of 13.2, CMP with no acute findings, lactic is normal, pro calcitonin is normal Chest x-ray is negative, Covid swab obtained Patient was started on the sepsis protocol including IV fluids and given Rocephin IV. I spoke to Dr. Avila who did patient's , he came to the ED and evaluated patient. He recommended to send patient home on Macrobid. Patient was provided return precautions and discharged in stable condition Dragon Disclaimer: Draganiceto Disclaimer: This electronic medical record was generated, in whole or in part, using a voice recognition dictation system. Departure Departure Impression: Primary Impression: Urinary tract infection Qualified Codes: N39.0 - Urinary tract infection, site not specified Additional Impressions: Headache Qualified Codes: R51.9 - Headache, unspecified Fever Qualified Codes: R50.9 - Fever, unspecified Person under investigation for COVID-19 Disposition: 01 DC HOME SELF CARE/HOMELESS Condition: STABLE Referrals: NO PCP (PCP) ANKUSH AVILA MD follow up in 1 week Patient Instructions: Fever, Adult, Urinary Tract Infection Additional Instructions: You were evaluated in the emergency room for fever, headache, you were noted to have urinary tract infection and put on antibiotics. Please follow-up with in 1 week. Take Tylenol as needed for fever. Push fluids. Come back to the ED at any point symptoms worsen Scripts Nitrofurantoin Monohyd/M-Cryst (MACROBID 100 MG CAPSULE) 100 Mg Capsule 1 CAP PO BID for 7 Days, #14 CAP 0 Refills Prov: NICOLE MURPHY PORTER BAGGAGE 05/19/20 NICOLE MURPHY APRN May 19, 2020 14:47
[2020-05-19] MEDS ORDERED: NITR100C62 PO (15:02)
== END 2020-05-19 15:16 | disposition home or self-care (01) ==
LOC: ER 10:31
DX: O86.20 Urinary tract infection following delivery, unspecified (principal); Z20.822 Contact with and (suspected) exposure to COVID-19; R51.9 Headache, unspecified; O99.53 Diseases of the respiratory system complicating the puerperium; J45.909 Unspecified asthma, uncomplicated
CPT/HCPCS: 36415; 71045; 80053; 81001; 81025; 83605; 84145; 85007; 85025; 87040; 87086; 96361; 96374; 99285; C9803; J0696; J7030; U0003

== ENCOUNTER 2021-06-11 10:39 | Emergency (ER) | payer OTHER ==
[~2021-06-11] VITALS: Ht 157.5 cm; Wt 72.2 kg
[~2021-06-11 10:39] MED LIST changes: +CYCL10TA19 PO; -CYCL10TA2 PO; +NITR100C62 PO
[2021-06-11 11:01] VITALS: BP 117/76
[2021-06-11] MEDS ORDERED: IOHEXOL 300 MG/ML 100ML VIAL. IV ONE (12:45)
[2021-06-11] MEDS ORDERED: CONTRAST GIVEN. MC PRN (12:45)
[2021-06-11 12:56] LABS: BASO % 1 % (0-3); EOS # 0.1 x10^3/uL (0.0-0.7); EOS % 1 % (0-3); HEMOGLOBIN 12.6 g/dL (12.0-15.5); LYMPH # 2.2 x10^3/uL (1.0-4.8); LYMPH % 29 % (24-48); MEAN CORPUSCULAR HEMOGLOBIN 28 pg (25-35); MEAN CORPUSCULAR HGB CONC 33 g/dL (31-37); MEAN CORPUSCULAR VOLUME 83 fL (79-100); MONO # 0.4 x10^3/uL (0.0-1.1); MONO % 5 % (0-9); NEUT # 4.9 x10^3/uL (1.8-7.7); NEUT % 64 % (31-73); PLATELET COUNT 195 x10^3/uL (140-400); RED BLOOD COUNT 4.56 x10^6/uL (3.50-5.40); RED CELL DISTRIBUTION WIDTH 13.3 % (11.5-14.5); WHITE BLOOD COUNT 7.6 x10^3/uL (4.0-11.0)
[2021-06-11 13:05] LABS: CALCIUM 8.9 mg/dL (8.5-10.1); CREATININE 0.8 mg/dL (0.6-1.0); GFR 84.8; POTASSIUM 4.2 mmol/L (3.5-5.1)
[2021-06-11 13:10] LABS: BACTERIA,URINE 0 /HPF (0-FEW); RBC,URINE 0 /HPF (0-2); WBC,URINE 0 /HPF (0-4)
[2021-06-11 13:11] LABS: ALBUMIN 3.7 g/dL (3.4-5.0); ALBUMIN/GLOBULIN RATIO 0.9 (1.0-1.7); TOTAL BILIRUBIN 0.2 mg/dL (0.2-1.0); TOTAL PROTEIN 7.7 g/dL (6.4-8.2)
--- NOTE | 2021-06-11 13:57 | RAD ---
CT HEAD AND C-SPINE WO Clinical indications: Trauma, head and neck pain NONCONTRAST HEAD CT COMPARISON: None available. Technique: Noncontrast axial cross sectional scanning of the head was performed. PQRS compliance Statement One or more of the following individualized dose reduction techniques were utilized for this study: 1. Automated exposure control 2. Adjustment of the mA and/or kV according to patient size 3. Use of iterative reconstruction technique Findings: No acute intracranial hemorrhage or midline shift or mass-effect or hydrocephalus or extra- axial fluid collection is seen. No focal hypodense area or sulci effacement is seen to indicate an ac pamunkey infarct or edema radiographically. No skull fracture or pneumocephalus is seen. No opacification of the mastoid sinuses or the middle ear cavities or the paranasal sinuses is seen. The maxillary si nuses are not completely seen in this study. IMPRESSION: No acute intracranial abnormality is seen. NONCONTRAST CERVICAL SPINE CT TECHNIQUE: Noncontrast helical CT scanning of the cervical spine was performed. Multiplanar 2-D recon structions were generated. FINDINGS: No acute fracture or discitis or lytic process. No perching of facet joints is seen. Spinou s processes are intact. Alignment is normal. No prevertebral soft tissue swelling is evident. IMPRESSION: No acute fracture of the cervical spine. Electronically signed by: Laci Cox MD (06/11/2021 1:54 PM) [id number]
--- NOTE | 2021-06-11 14:14 | RAD ---
CT STUDY OF THE CHEST WITH CONTRAST CT STUDY OF THE ABDOMEN AND PELVIS WITH CONTRAST Clinical indications: Trauma. Lower chest and upper abdominal pain. TECHNIQUE: After IV infusion of 75 cc of Omnipaque 300, helical CT scanning of the chest and abdomen and pelvis was performed. GI contrast was not administered. This may decrease the sensitivity to dete ct GI tract pathology. PQRS COMPLIANCE STATEMENT One or more of the following individualized dose reduction techniques were utilized for this study: 1. Automated exposure control 2. Adjustment of the mA and/or kV according to patient size 3. Use of iterative reconstruction technique COMPARISON: CT study of the abdomen and pelvis dated November 30, 2018. CHEST CT: Fatty-replaced benign appearing axillary lymph nodes are seen bilaterally. No enlarged thor acic lymphadenopathy is evident otherwise. No focal aneurysmal dilatation or dissection of the thorac ic aorta is seen. Heart size is normal and no pericardial effusion is seen. No pleural effusion or pn eumothorax is apparent. No lung mass or lung infiltrate is seen. The proximal bronchial tree is paten t. Old healed lateral left eighth and ninth rib fractures are seen. No acute fracture is evident. No lytic process is seen. IMPRESSION: No acute abnormality. ABDOMEN AND PELVIS CT: Diffuse fatty infiltration of the liver is seen. No hepatic mass is evident. T he spleen is not enlarged. The liver and spleen are intact. No pancreatic mass is seen. The gallbladd er is normal and no extrahepatic biliary ductal dilatation is seen. No adrenal mass is apparent. Both kidneys are normal and are intact. The urinary bladder wall is smooth. No focal aneurysmal dilatatio n of the abdominal aorta is seen. No enlarged abdominal or pelvic lymphadenopathy is apparent. Both o varies are normal. No uterine mass is apparent. The appendix and terminal ileum are normal. No obstru ctive bowel pattern is evident. No bowel wall thickening is seen. No free air or free fluid or mesent dominguez edema is seen. The osseous structures are intact. No lytic process is seen. IMPRESSION: No acute abnormality. Electronically signed by: Laci Cox MD (06/11/2021 2:11 PM) [id number]
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
[2021-06-11] MEDS ORDERED: ACETAMINOPHEN 500 MG TABLET PO ONE (15:00)
--- NOTE | 2021-06-13 00:57 | EKG ---
[facility] [address] [place] [address] Test Date: 2021-06-11 Test Time: 13:38:27 Pat Name: AMY SALAZAR Department: Room: Gender: F Supervisor Floor Assembly: : [id number] Requested By: ANKUSH LAMA Order Number: [id number] Reading MD: Bobby Lawler Measurements Intervals [place] Rate: 69 P: 0 AK: 130 QRS: 28 QRSD: 78 T: 26 QT: 394 QTc: 424 Interpretive Statements SINUS RHYTHM NORMAL ECG RI6.01 No previous ECG available for comparison Electronically Signed On 06-17-2021 14:10:22 CDT by Bobby Lawler
== END 2021-06-11 15:17 | disposition home or self-care (01) ==
LOC: ER 10:39
DX: R51.9 Headache, unspecified (principal); R07.89 Other chest pain; R10.10 Upper abdominal pain, unspecified; G89.11 Acute pain due to trauma; J45.909 Unspecified asthma, uncomplicated; V49.49XA Driver injured in collision with other motor vehicles in traffic accident, initial encounter; Y93.89 Activity, other specified; Y92.488 Other paved roadways as the place of occurrence of the external cause; Y99.8 Other external cause status
CPT/HCPCS: 36415; 70450; 71260; 72125; 74177; 80053; 81001; 81025; 83690; 85025; 93005; 99285; Q9967